=== PATIENT | female | born 1990 | race Caucasian/White ===

== ENCOUNTER → 2021-03-20 13:00 | Outpatient (CLI) | payer SELFPAY ==
[2021-03-09 10:58] VITALS: BMI 22.5
[2021-03-20 14:05] LABS: Thyroid Stim Hormone (TSH) 1.98 uIU/mL (0.358-3.74)
== END ==
PROVIDERS: Visit Provider Obstetrics & Gynecology
DX: N92.0 Excessive and frequent menstruation with regular cycle (principal); N97.9 Female infertility, unspecified
CPT/HCPCS: 36415; 84443

== ENCOUNTER → 2021-03-31 16:14 | Outpatient (CLI) | payer SELFPAY ==
[2021-03-09 10:58] VITALS: BMI 22.5
--- NOTE | 2021-03-31 16:16 | US_ITS ---
STUDY: ULTRASOUND OF THE FEMALE PELVIS - COMPLETE REASON FOR EXAM: Female, 30 years old. Menorrhagia LMP: 03/18/2021 TECHNIQUE: Transabdominal and Transvaginal TECHNICAL QUALITY: Adequate. COMPARISON: None. FINDINGS: The uterus is anteverted and is in a midline position. The uterus measures 8.0 x 3.1 x 4.2 cm. There is a Nabothian cyst of the cervix. The endometrium measures 7.0 mm in thickness, and is within normal limits. There is no demonstrated endometrial mass. Within the posterior uterine fundus there is an intramural 0.9 x 1.0 x 0.5 cm hypoechoic round focus consistent with an intramural fibroid. I.U.D. - The patient does not have an I.U.D. The right ovary is visualized. The right ovary measures 3.1 x 2 point to by 2.5 cm. There is a right ovarian cyst which measures 1.7 x 1.5 x 1.7 cm. There is normal arterial and normal venous vascularity. The left ovary is visualized. The left ovary measures 2.4 x 1.9 x 2.3 cm. There is a 1.8 x 1.8 x 1.0 cm left ovarian cyst. There is normal arterial and normal venous vascularity. There is no fluid in the cul-de-sac. Polycystic ovary disease: No. US/Pelvic (Non ) IMPRESSION: Bilateral ovarian cysts. 0.9 x 1.0 x 0.5 cm intramural fibroid. Electronically Signed: Chery Philip MD at 18:36 EDT Tel , Service support ,
--- NOTE | 2021-03-31 16:16 | US_ITS ---
STUDY: ULTRASOUND OF THE FEMALE PELVIS - COMPLETE REASON FOR EXAM: Female, 30 years old. Menorrhagia LMP: 03/18/2021 TECHNIQUE: Transabdominal and Transvaginal TECHNICAL QUALITY: Adequate. COMPARISON: None. FINDINGS: The uterus is anteverted and is in a midline position. The uterus measures 8.0 x 3.1 x 4.2 cm. There is a Nabothian cyst of the cervix. The endometrium measures 7.0 mm in thickness, and is within normal limits. There is no demonstrated endometrial mass. Within the posterior uterine fundus there is an intramural 0.9 x 1.0 x 0.5 cm hypoechoic round focus consistent with an intramural fibroid. I.U.D. - The patient does not have an I.U.D. The right ovary is visualized. The right ovary measures 3.1 x 2 point to by 2.5 cm. There is a right ovarian cyst which measures 1.7 x 1.5 x 1.7 cm. There is normal arterial and normal venous vascularity. The left ovary is visualized. The left ovary measures 2.4 x 1.9 x 2.3 cm. There is a 1.8 x 1.8 x 1.0 cm left ovarian cyst. There is normal arterial and normal venous vascularity. There is no fluid in the cul-de-sac. Polycystic ovary disease: No. US/Transvaginal Non- IMPRESSION: Bilateral ovarian cysts. 0.9 x 1.0 x 0.5 cm intramural fibroid. Electronically Signed: Chery Philip MD at 18:36 EDT Tel , Service support ,
== END ==
PROVIDERS: Referring Provider Obstetrics & Gynecology; Visit Provider Obstetrics & Gynecology
DX: N92.0 Excessive and frequent menstruation with regular cycle (principal)
CPT/HCPCS: 76830; 76856

== ENCOUNTER → 2022-06-05 | Outpatient (CLI) | payer SELFPAY ==
[2022-06-09 23:39] LABS: HPV APTIMA, High Risk Negative (Negative)
== END | disposition home or self-care (01) ==
LOC: LABSPEC 14:31
PROVIDERS: Visit Provider Nurse Practitioner Women's Health
DX: Z12.4 Encounter for screening for malignant neoplasm of cervix (principal)
CPT/HCPCS: 87624; 88175; G0145

== ENCOUNTER → 2024-08-31 | Outpatient (CLI) | payer SELFPAY ==
--- NOTE | 2024-08-31 07:59 | BI_ITS ---
MAMMOGRAPHY - BILATERAL SCREENING REASON FOR EXAM: Female, 34 years old. Routine annual screening examination. PERTINENT HISTORY: Aunt with breast cancer. TECHNIQUE: Digital bilateral breast fabiola (3D mammographic acquisition) in the CC and MLO projections. 2-D mediolateral oblique (MLO) and craniocaudad (CC) views of both breasts were obtained. CAD: Full Field Digital Mammography with Computer Added Detection was performed. COMPARISON: None. Baseline examination. FINDINGS: Breast Composition: The breasts are extremely dense, which lowers the sensitivity of mammography. There are no dominant masses or suspicious calcifications. No other significant abnormalities are identified. BI/SCRN MAMM (CAD)W/FABIOLA BILAT IMPRESSION: Negative screening mammogram. Yearly followup mammogram recommended. (A) ASSESSMENT CATEGORY: BIRADS Category 1: Negative. A letter regarding these results will be sent to the patient by the facility within 30 days. Approximately 10% of breast cancers are not detected by mammography. A normal mammogram should not delay biopsy of a clinically suspicious abnormality. [id number] Electronically Signed: Benjamin Ye MD at 9:25 EDT ,
== END | disposition home or self-care (01) ==
LOC: OPBI 07:55
PROVIDERS: Referring Provider Nurse Practitioner Women's Health; Visit Provider Nurse Practitioner Women's Health
DX: Z12.31 Encounter for screening mammogram for malignant neoplasm of breast (principal)
CPT/HCPCS: 77063; 77067

== ENCOUNTER → 2024-11-26 | Outpatient (CLI) | payer SELFPAY ==
[2024-11-26 12:23] LABS: Absolute Lymphocyte Count 2.05 X10^3/uL (0.83-4.51); Absolute Neutrophil Count 3.4 X10^3/uL (2.0-7.7); Basophil# 0.03 X10^3/uL; Basophil% 0.5 % (0-1); Eosinophil# 0.25 X10^3/uL; Hematocrit 36.9 % (37-47); Hemoglobin 11.5 g/dL (12.0-15.0); Lymphocyte # 2.05 X10^3/ul (0.83-4.51); Lymphocyte % 32.7 % (19-41); Mean Corp Hgb Conc 31.2 g/dL (32-36); Mean Corpuscular Hgb 25.1 pg (27.0-32.0); Mean Corpuscular Volume 80.6 fL (81-99); Mean Platelet Vol. 9.4 fl (6.2-12.0); Monocyte# 0.49 X10^3/uL; Monocyte% 7.8 % (0-10); NRBC Flagged by Analyzer 0 % (0-5); Neutrophil # 3.43 X10^3/uL (2.7-7.7); Neutrophil % 54.7 % (47-70); Platelet Count 569 K/mm3 (150-450); RBC Distribution Width CV 14.6 % (11.6-14.6); RBC Distribution Width SD 42.7 fl (35.1-43.9); Red Blood Count 4.58 M/mm3 (4.2-5.4); White Blood Count 6.3 K/mm3 (4.4-11.0)
[2024-11-26 12:43] LABS: ALB/GLOB Ratio 0.7 RATIO (0.9-2.4); AST(SGOT) 15 U/L (15-37); Alanine Aminotransfer ALT/SGPT 24 U/L (13-56); Albumin, Serum 3.1 g/dL (3.2-5.0); Alkaline Phosphatase 90 U/L (45-117); Anion Gap 6 (5-15); BUN 11 mg/dL (7-18); BUN/Creat Ratio 18.3 RATIO (10-20); Calcium,Total 8.9 mg/dL (8.5-10.1); Chloride 109 mmol/L (98-107); Cholesterol 240 mg/dL (200); EST Glomerular Filtration Rate 121 mL/min (>60); Est Glom Filt Rate - Afr Amer 146 mL/min (>60); Globulin 4.3 g/dL (2.2-4.2); Glucose 95 mg/dL (74-106); High Density Lipoprotein 59 mg/dL; Protein, Total 7.4 g/dL (6.4-8.2); Sodium Level 137 mmol/L (136-145); Triglycerides 239 mg/dL; Very Low Density Lipoprotein 48 mg/dL (5-40)
[2024-11-30 02:06] LABS: Beef <0.10 kU/L (Class 0); Chocolate <0.10 kU/L (Class 0); Codfish <0.10 kU/L (Class 0); Corn <0.10 kU/L (Class 0); Egg, Whole <0.10 kU/L (Class 0); Milk (Cow) <0.10 kU/L (Class 0); Mussels <0.10 kU/L (Class 0); Peanut <0.10 kU/L (Class 0); Pork <0.10 kU/L (Class 0); Salmon <0.10 kU/L (Class 0); Shrimp <0.10 kU/L (Class 0); Soybean <0.10 kU/L (Class 0); Tuna <0.10 kU/L (Class 0); Wheat <0.10 kU/L (Class 0)
== END | disposition home or self-care (01) ==
PROVIDERS: PCP Internal Medicine; Referring Provider Internal Medicine; Visit Provider Internal Medicine
DX: Z13.6 Encounter for screening for cardiovascular disorders (principal); R14.3 Flatulence; K60.2 Anal fissure, unspecified
CPT/HCPCS: 36415; 80053; 80061; 85025; 86003; 86005

== ENCOUNTER 2025-01-11 06:49 | Day surgery (SDC) | payer SELFPAY ==
[2025-01-11] VITALS (9 sets, daily range): BP systolic 92–130; BP diastolic 50–87; PULSE 65–88; RESP 12–16; TEMP 36.3–36.7; O2SAT 97–100; BMI 27.2
[2025-01-11 07:17] LABS: Internal QC Validated? YES +Cl - CLEAR BKGD; Pregnancy, Urine Negative Negative
--- NOTE | 2025-01-11 07:19 | H&P.OPEN ---
HPI - General General Date of Service: 01/11/25 HPI Narrative MILADYS BEAN, is a 34 F who presents for screening colonoscopy due to bright red blood per rectum and anal fissure. P patient did states she has slight amount of blood at the end of the prep. However that did resolve with the treatment of the fissure. Office visit 12/07/2024 HPI HPI: 34-year-old female presents due to bright red blood per rectum history and history of anal fissure. Patient states she noticed the fissure in fall 2022 went to an urgent care was told increased her fiber/water on sitz bath's and also could apply some Neosporin to it. Patient has been having bowel movements daily with her Metamucil powder and gummy. Patient states she will occasionally have some bright red blood per rectum. However in September 2024 she did have quite a bit of bright red blood per rectum which was concerning to her. Patient denies any immediate family history of colon cancer. Patient's paternal aunt had esophageal cancer and paternal first cousin?aunts daughter had her cecum removed but patient states there is no cancer. [facility], [facility] Medical History Wears glasses Alcohol use High cholesterol Syncope Heartburn Non-smoker History of edema Hemorrhoid Gastrointestinal complaints Back problem Arthritis Anal fissure Home Medications ?Medication ?Instructions ?Recorded ?Last Taken ?Type multivitamin 1 tab PO DAILY 06/05/22 01/10/25 History cetirizine 10 mg capsule (Zyrtec) 10 mg PO DAILY PRN allergy symptoms 06/19/23 01/10/25 History fluticasone propionate 50 1 spray intranasal DAILY 06/19/23 01/10/25 History mcg/actuation nasal spray,suspension (Flonase Allergy Relief) norgestimate 0.25 mg-ethinyl See Rx Instructions .Route 06/22/24 01/10/25 Rx estradiol 35 mcg tablet (Gisel) .COMPLEX #84 tabs psyllium husk 0.4 gram capsule 0.4 g PO DAILY 11/12/24 01/09/25 History (Metamucil) Diltiazem 10mg/Lidocaine 50mg 1 supp OH BID PRN pain 01/07/25 Unknown History Suppository 30 supp suppository Allergy/AdvReac Type Severity Reaction Status Date / Time nickel Allergy Intermediate Rash Verified 01/11/25 07:14 amoxicillin Allergy Mild hives Verified 01/11/25 07:14 Family History Aunt Breast cancer Esophageal cancer Grandfather Diabetes Grandmother Arthritis RA Grandfather Heart disease Mother Anxiety Sister Allergy to gluten Surgical History History of wisdom tooth extraction, class II edentulism Social History adopted: No household members: spouse number of children: 0 current occupational status: employed 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 current occupational exposures/hazards: No pets and animals: Yes leisure activities: games, reading and other history of recent travel: No sexually active: Yes Smoking Status: Never smoker second hand exposure: No alcohol intake: current alcohol intake frequency: holidays/special occasions only Alcohol type: wine details: social substance use type: does not use diet: low salt well-balanced diet: daily or most days caffeine: Yes Type: coffee eating out: 1-3 times/week during the past year weight has: increased > 10 lbs what type of physical activity do you participate in: bicycling frequency: 3-4 times per week duration: 15-30 minutes/day corbin/jewish: mandaen seatbelt use: always do you feel safe at home: Yes additional social history: [place] 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[employer] Past Medical/Surgical History Planned Operation Planned Operative Procedure(s): COLONOSCOPY Previous Hospitalizations/Surgeries HX Hospitalizations: No Any Problems With Anesthesia: No (FAMILY HISTORY PONV) You/Your Family Experience Fever (Hyperthermia) With Anes: No Cholinesterase deficiency: No Cardiovascular Hx Hypertension: No Respiratory Hx Sleep Apnea: No Hx Respiratory Tract Infection/Cold (presently): No Do You Snore Loudly (louder than talking or can be heard): No Do You Often Feel Tired/ Fatigued/ Sleepy Dring Daytime?: No Has Anyone Observed You Stop Breathing During Sleep?: No Result (for STOP score): Negative Smoking Status: Never smoker Neurological Does patient have nerve stimulator: No Reproduction : No Miscellaneous Recent Exposure to Contagious Disease: No Allergies nickel Allergy (Intermediate, Verified 01/11/25 07:14) Rash amoxicillin Allergy (Mild, Verified 01/11/25 07:14) hives Discharge Is Pt Admitted From a Group Home, or a Residential: No Who Could Help: After D/C, Where Do you Plan to Go: Return Home Vital Signs Vital Signs Vital Signs: 01/11/25 07:15 01/11/25 07:15 Temperature 97.7 F L Temperature Source Temporal Pulse Rate 88 Respiratory Rate 12 Respiratory Pattern Normal Blood Pressure 130/80 H Blood Pressure Mean 96 Blood Pressure Source Monitor Blood Pressure Position Semi-Fowlers Blood Pressure Location Right Arm Pulse Ox 99 Oxygen Delivery Method Room Air Weight Weight: 179 lb 0.246 oz Body Mass Index (BMI) 27.2 Physical Exam Const alert, oriented x3 and no apparent distress HEENT normocephalic and head/scalp atraumatic Resp normal respiratory effort Cardio regular rate GI soft to palpation and non-tender; Negative for non-distended Palpation: Negative for guarding Extremity no clubbing, cyanosis or edema Skin no rashes or lesions noted Neuro CN's II-XII intact bilaterally Psych mental status grossly normal Assessment & Plan Assessment/Plan (1) BRBPR (bright red blood per rectum): Surgery Risks - Colonoscopy I discussed with the patient the risks of the procedure: Yes Risks Include but are not Limited To: Risks include but are not limited to: Bleeding, perforation requiring further surgery, inability to complete colonoscopy requiring barium enema.
--- NOTE | 2025-01-11 07:21 | PRE.ANES_ITS ---
ASA Classification* ASA Classification ASA Classification: 2 Assessment & Plan Anesthesia* Anesthesia Assessment Anesthesia Assessment: Discussed sedation and/or anesthesia options, risks, benefits, and alternatives with patient/parents/legal guardian/POA. Questions invited. The patient/parents/legal guardian/POA seems to understand and agrees to proceed with anesthesia plan. Reviewed the physical assessment, medical history, allergy history and patient home medications list prior to surgery/procedure/anesthetic and documented any changes. Performed airway and anesthesia risk assessments. Anesthesia Type Anesthesia Type: MAC Anesthesia Focused Assessment* Temperature: 97.7 F Pulse Rate: 88 Blood Pressure: 130/80 Respiratory Rate: 12 Pulse Ox: 99 Airway Assessment Mouth opens: >3 cm Mallampati Score: II Focused Labs Anesthesia Preop lab: CBC WBC 6.3 K/mm3 (4.4-11.0) 11/26/24 09:06 11/26/24 RBC 4.58 M/mm3 (4.2-5.4) 11/26/24 09:06 11/26/24 Hgb 11.5 g/dL (12.0-15.0) L 11/26/24 09:06 5 Hct 36.9 % (37-47) L 11/26/24 09:06 11/26/24 Plt Count 569 K/mm3 (150-450) H 11/26/24 09:06 11/26/24 CHEMISTRY Potassium 4.0 mmol/L (3.5-5.1) 11/26/24 09:06 11/26/24 Sodium 137 mmol/L (136-145) 11/26/24 09:06 11/26/24 BUN 11 mg/dL (7-18) 11/26/24 09:06 11/26/24 Creatinine 0.60 mg/dL (0.55-1.02) 11/26/24 09:06 11/26/24 Glucose 95 mg/dL (74-106) 11/26/24 09:06 11/26/24 TSH 1.98 uIU/mL (0.358-3.74) 03/20/21 13:15 COAG Urine Test Negative Negative 01/11/25 07:00 01/11/25 Pre-Assessment Diagnosis/Proposed Procedure Planned Operative Procedure(s): COLONOSCOPY Anesthesia History Anesthesia History - information systems audit manager: Anesthesia History - information systems audit manager Hx Hospitalization No 01/11/25 07:20 Any Problems With Anesthesia No: FAMILY HISTORY PONV 01/11/25 07:20 Cholinesterase deficiency No 01/11/25 07:20 You/Your Family Experience No 01/11/25 07:20 fever (hyperthermia) with Relationship Recent Exposure to Contagious No 01/11/25 07:20 Disease Does patient have nerve No 01/11/25 07:20 stimulator Patient instructed to have device shut off --Does patient have Pacemaker No 01/11/25 07:15 or ICD? When Was Last Pacemaker Check QUESTION #4 FULL TEXT: You/Your Family Experience fever (hyperthermia) with Anesthesia Last Oral Intake Last Oral intake: Last Oral Intake NPO since 23:45 01/11/25 07:15 Meds taken in AM with sips of No 01/11/25 07:15 water? Meds patient instructed to take am of surgery PONV PONV - information systems audit manager: PONV - information systems audit manager Female Yes 01/07/25 16:26 HX of Motion Sickness No 01/07/25 16:26 HX of N/V After Surgery No 01/07/25 16:26 Non-Smoker Yes 01/07/25 16:26 Duration of Surgery greater No 01/07/25 16:26 than 60 minutes Number of Risk Factors 2 01/07/25 16:26 PONV Score Moderate Risk 01/07/25 16:26 Height & Weight Height & Weight: Anesthesia: Height & Weight Height 5 ft 8 in 01/11/25 07:15 Weight: 81.2 kg 01/11/25 07:15 Body Mass Index (BMI) 27.2 01/11/25 07:15 Respiratory Assessment Respiratory Assessment - information systems audit manager: Respiratory Tract Infection Hx - information systems audit manager Hx Respiratory Tract Infection No 01/11/25 07:20 STOP Sleep Apnea STOP Sleep Apnea - information systems audit manager: STOP Sleep Apnea - information systems audit manager Hx Hypertension No 01/11/25 07:20 Hx Sleep Apnea No 01/11/25 07:20 CPAP BIPAP Do you snore loudly (louder No 01/11/25 07:20 than talking or can be heard Do you often feel tired/ No 01/11/25 07:20 fatigued/ sleepy during daytime? Has anyone observed you stop No 01/11/25 07:20 breathing during sleep? STOP Results Negative 01/11/25 07:20 QUESTION #5 FULL TEXT : Do you snore loudly (louder than talking or can be heard through closed doors)? Tobacco Use History Tobacco Use History - information systems audit manager: Tobacco Use History - information systems audit manager Tobacco Use Smoking Status Never smoker 01/11/25 07:20 Hx Tobacco Use No 01/07/25 16:26 Years Smoking Packs Smoked per Day Smoking Cessation Date was within the last 15 years Hx Smoking Cessation Date Hx Smoking Cessation Counseling Hematologic Medial History Hematologic Hx - information systems audit manager: Hematologic Medical Hx - drafter seismograph Hx of Blood Transfusion No 01/07/25 16:26 Hx of Transfusion in last 3 No 01/07/25 16:26 Months Date of Last Transfusion (if within last 3 months) Ever experience any problems No 01/07/25 16:26 with transfusion(s)? Specify any problems Hx of Preganancy in last 3 No 01/07/25 16:26 Months Nurse Filling Out Transfusion MGRIFFITH 01/07/25 16:26 & Questions: Date: 01/07/25 01/07/25 16:26 Time: 16:28 01/07/25 16:26 Patient unable to answer at this time (ie. confused, unrespo /Reproduction History /Reproductive History - information systems audit manager: /Reproductive Hx- information systems audit manager Hx Now No 01/11/25 07:20 Gestational Age (in weeks): EDC: Hx Hx Para Hx Section SAB No 01/07/25 16:26 [facility] Medical History Wears glasses Alcohol use High cholesterol Syncope Heartburn Non-smoker History of edema Hemorrhoid Gastrointestinal complaints Back problem Arthritis Anal fissure Home Medications ?Medication ?Instructions ?Recorded ?Last Taken ?Type multivitamin 1 tab PO DAILY 06/05/2212/26 History cetirizine 10 mg capsule (Zyrtec) 10 mg PO DAILY PRN a llergy symptoms 06/19/23 01/10/25 History fluticasone propionate 50 1 spray intranasal DAILY 01/10/25 History mcg/actuation nasal spray,suspension (Flonase Allergy Relief) norgestimate 0.25 mg-ethinyl See Rx Instructions .Rout e 06/22/24 01/10/25 Rx estradiol 35 mcg tablet (Gisel) .COMPLEX #84 tabs psyllium husk 0.4 gram capsule 0.4 g PO DAILY 11/12/24 01/09/25 History (Metamucil) Diltiazem 10mg/Lidocaine 50mg 1 supp ID BID PRN pain 0 01/07/25 Unknown History Suppository 30 supp suppository Allergy/AdvReac Type Severity Reaction Status Date / Time nickel Allergy Intermediate Rash Verified 01/11/25 07:14 amoxicillin Allergy Mild hives Verified 01/11/25 07:14 Family History Aunt Breast cancer Esophageal cancer Grandfather Diabetes Grandmother Arthritis RA Grandfather Heart disease Mother Anxiety Sister Allergy to gluten Surgical History History of wisdom tooth extraction, class II edentulism Social History adopted: No household members: spouse number of children: 0 current occupational status: employed 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 current occupational exposures/hazards: No pets and animals: Yes leisure activities: games, reading and other history of recent travel: No sexually active: Yes Smoking Status: Never smoker second hand exposure: No alcohol intake: current alcohol intake frequency: holidays/special occasions only Alcohol type: wine details: social substance use type: does not use diet: low salt well-balanced diet: daily or most days caffeine: Yes Type: coffee eating out: 1-3 times/week during the past year weight has: increased > 10 lbs what type of physical activity do you participate in: bicycling frequency: 3-4 times per week duration: 15-30 minutes/day corbin/anglican: quaker seatbelt use: always do you feel safe at home: Yes 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
--- NOTE | 2025-01-11 08:35 | OP.COLON_ITS ---
Patient Name: Marti Paul Procedure Date: 01/11/2025 8:05 AM Date of : 1990 Age: 34 Procedure: Colonoscopy Indications: Rectal bleeding Providers: Madyson Rdz MD Referring MD: Inga Hong Md Medicines: Monitored Anesthesia Care Patient Profile: This is a 34 year old female. Last Colonoscopy: none. The patient's first colonoscopy is today. Complications: No immediate complications. Procedure: Pre-Anesthesia Assessment: - Prior to the procedure, a History and Physical was performed, and patient medications and allergies were reviewed. The patient's tolerance of previous anesthesia was also reviewed. The risks and benefits of the procedure and the sedation options and risks were discussed with the patient. All questions were answered, and informed consent was obtained. Prior Anticoagulants: The patient has taken no anticoagulant or antiplatelet agents. ASA Grade Assessment: Per anesthesia. After reviewing the risks and benefits, the patient was deemed in satisfactory condition to undergo the procedure. After I obtained informed consent, the scope was passed under direct vision. Throughout the procedure, the patient's blood pressure, pulse, and oxygen saturations were monitored continuously. The Colonoscope was introduced through the anus and advanced to the cecum, identified by the appendiceal orifice, ileocecal valve and palpation. The colonoscopy was performed without difficulty. The patient tolerated the procedure well. Scope In: 8:16:52 AM Scope Withdrawal Time 0 hours 6 minutes 53 seconds Scope Out: 8:29:52 AM Total Procedure Duration Time 0 hours 13 minutes 0 seconds Findings: An anal fissure was found on perianal exam. The entire examined colon appeared normal on direct and retroflexion views. Impression: - Anal fissure found on perianal exam. - The entire examined colon is normal on direct and retroflexion views. - No specimens collected. Recommendation: - Discharge patient to home. - Resume previous diet. - Continue present medications. - Repeat colonoscopy in 10 years for screening purposes. Procedure Code(s): --- Professional --- 78947, Colonoscopy, flexible; diagnostic, including collection of specimen(s) by brushing or washing, when performed (separate procedure) Diagnosis Code(s): --- Professional --- K60.2, Anal fissure, unspecified K62.5, Hemorrhage of anus and rectum CPT copyright 2021 [employer]. All rights reserved. The codes documented in this report are preliminary and upon master automotive technician review may be revised to meet current compliance requirements. MD Madyson Pineda MD 01/11/2025 8:35:03 AM This report has been signed electronically. Number of Addenda: 0 Note Initiated On: 01/11/2025 8:05 AM
--- NOTE | 2025-01-11 08:35 | OP.CCLET_ITS ---
01/11/2025 Inga Hong Md Re : Colonoscopy procedure for Marti Paul Dear Gely This procedure was performed on Saturday, January 11, 2025. My impressions and recommendations are as follows: Impressions : - Anal fissure found on perianal exam. - The entire examined colon is normal on direct and retroflexion views. - No specimens collected. Recommendations : - Discharge patient to home. - Resume previous diet. - Continue present medications. - Repeat colonoscopy in 10 years for screening purposes. My findings are described in the full procedure note, which is enclosed. If I can be of further assistance, please feel free to contact me at Doctor phone number(s): , Work: . Sincerely, MD Madyson Pineda MD 01/11/2025 8:35:03 AM This report has been signed electronically.
--- NOTE | 2025-01-11 08:40 | PCM.POST.ANE ---
Anesthesia: Postop Eval I Current Vital Signs Temperature: 98 F Pulse Rate: 84 Blood Pressure: 94/50 Respiratory Rate: 16 Pulse Ox: 97 Oxygen Delivery Method: Room Air Assessment Airway patent: No Spontaneous unlabored respirations: No Mental status: Awake and Calm nausea: No Vomiting: No Anesthesia Complication: No Fluid Hydration Crystalloid volume administer (ml): 50 Total IV fluid infused: 50 Progress Note Anesthesia document: Postop Eval 1 completed: Yes
--- NOTE | 2025-01-11 08:59 | PCM.POSTANE2 ---
Anesthesia Postop Eval I Sum Postop Eval Completion status Anesthesia document: Postop Eval 1 completed: Yes Anesthesia Postop Eval I Summary Anesthesia Postop Eval I Summary: Anesthesia Postop Eval I: Assessment Summary Airway patent No 01/11/25 08:41 [email or web address] Spontaneous unlabored No 01/11/25 08:41 [email or web address] respirations Mental status Awake,Calm 01/11/25 08:41 [email or web address] nausea No 01/11/25 08:41 [email or web address] Vomiting No 01/11/25 08:41 [email or web address] Anesthesia Postop Eval I: Fluid Summary Crystalloid volume administer 50 01/11/25 08:41 [email or web address] (ml) Colloids volume administered ( ml) Blood Product volume administered (ml) Total IV fluid infused 50 01/11/25 08:41 [email or web address] Anesthesia Postop Eval I: Summary Notes Anesthesia Complication No 01/11/25 08:41 [email or web address] Anesthesia Complication Comment: Post-operative progress note Anesthesia: Postop Eval II Evaluation Mental status: Awake Pain Level: 0 nausea: No Vomiting: No
== END 2025-01-11 09:25 | disposition home or self-care (01) ==
LOC: EN 06:50 → AC 06:51
PROVIDERS: Anesthesiology; PCP Internal Medicine; Referring Provider Internal Medicine; Visit Provider Surgery
PROC: 0DJD8ZZ Inspection of Lower Intestinal Tract, Via Natural or Artificial Opening Endoscopic (ICD-10-PCS; CPT 45378; principal; 2025-01-11 08:10)
DX: Z12.11 Encounter for screening for malignant neoplasm of colon (principal); K62.5 Hemorrhage of anus and rectum; E78.00 Pure hypercholesterolemia, unspecified; K60.2 Anal fissure, unspecified
CPT/HCPCS: 45378; 81025; A4216; J2405

== ENCOUNTER → 2025-07-24 | Outpatient (CLI) | payer SELFPAY ==
--- OUTSIDE RECORDS SUMMARY | 2025-07-24 09:52 | XMS RPT_ITS | CCD ---
Author Organization [facility] Care Team Providers Care Implementation Lead Name Role Phone BARRY CHICAS Attending Unavailable BARRY CHICAS Admitting Unavailable AA NO PCP, NO PCP Primary Care Unavailable Care Physician, No Primary Primary Care Provider Unavailable Care Physician, No Primary Referring Provider Un available Tal SHAKE MAKER, SHAKE MAKER-C Gabriella Attending Provider Required, No Pcp Unavailable Unavailable Markie Kaur Unavailable Kendell Madyson Consulting Unavailable Jerman Rdzera Attending Unavailable Melbeta, Inga Primary Care Unavailable Melbeta, Inga Referring Unavailable Tal SHAKE MAKER, Gabriella Attending Unavailable Care Physician, No Primary Primary Care Unava ilable Care Physician, No Primary Referring Unava ilable Gely, Inga Primary Care Unavailable Melbeta, Inga Attending Unavailable Melbeta, Inga Referring Unavailable Tal SHAKE MAKER, Gabriella Attending Unavailable Tal SHAKE MAKER, Gabriella Referring Unavailable Care Physician, No Primary Primary Care Unava ilable Robotham, Madyson Attending Unavailable Melbeta, Inga Primary Care Unavailable Gely, Inga Referring Unavailable Robotham, Madyson Attending Unavailable Care Physician, No Primary Referring Unava ilable Melbeta, Inga Primary Care Unavailable Care Physician, No Primary Primary Care Unava ilable Care Physician, No Primary Referring Unava ilable Melbeta, Inga Attending Unavailable Allergies Allergy Classification Reported Allergen(s) Allergy Type Date of Onset Reaction(s) Facility nickel (1 source) nickel; Translations: [Nickel] Drug Allergy [facility] Repository Penicillins (antibiotic) (1 source) Amoxicillin Drug Allergy [facility] Repository (2 sources) Amoxicillin Drug Allergy 06-05-2022 [facility] Work Phone: (1 source) Amoxicillin Drug Allergy 01-11-2025 [facility] Repository (1 source) nickel Drug Allergy 01-11-2025 [facility] Repository Medications Current Medications Medication Drug Class(es) Dates Sig (Normalized) Sig (Original) Norgestimate-Ethin yl Estradiol (2 sources) Progestin, Estrogen Start: 06-05-2022 take 1 tablet by mouth once daily Norgestimate-Ethi nyl Estradiol (Sprintec (28)) 0.25-35 mg-mcg tablet Active 1 TABLET PO daily 84 June 05, 2022 12:00am Sprintec Quantit y: 0 Refills: 0 Ordered: 20-Jul-2023 Rashad Arreola Generic Substitution Allowed Multivitamin preparation (1 source) Start: 06-05-2022 take 1 tablet by mouth once daily Multivitamin Active 1 TABLET PO DAILY June 05, 2022 12:00am Problems Active Problems Problem Classification Problem Date Documented Da te Episodic/Chronic Anal and rectal conditions (5 sources) Rectal pain; Translations: [Anal fissure] Onset: 11-12-2024 07-20-2023 Episodic Comment on above: RECTAL PAIN Contraceptive and procreative management (2 sources) Encounter for fertility testing; Translations: [ENCOUNTER FOR FERTILITY TESTING] Onset: 05-19-2021 Episodic Gastrointestinal hemorrhage (2 sources) Hemorrhage of anus and rectum; Translations: [Hemorrhage of anus and rectum] Onset: 01-22-2025 Episodic Menstrual disorders (2 sources) Dysmenorrhea; Translations: [Dysmenorrhea, unspecified] Chronic Other gastrointestinal disorders (1 source) Flatulence; Translations: [Flatulence] Onset: 11-12-2024 Episodic Other screening for suspected conditions (not mental disorders or infectious disease) (3 sources) Encounter for screening for cardiovascular disorders; Translations: [Encounter for screening mammogram for malignant neoplasm of breast] Onset: 06-22-2024 Episodic Unclassified (2 sources) Infertile; Translations: [Infertility] Past or Other Problems Problem Classification Problem Date Documented Da te Episodic/Chronic Residual codes; unclassified (1 source) Family history of malignant neoplasm of breast; Translations: [Family history of malignant neoplasm of breast] Onset: 06-22-2024 Episodic Results Test Name Value Interpretation Reference Range Facility Colonoscopy Reporton 025 Colonoscopy Report [facility] Medical Records Department [address] [place] [address] Colonoscopy Report MR#: [id number] Acct: [id number] Name: MILADYS DIETZ Rep #: [id number] : 1990 34 From: Madyson Rdz MD PCP: Dr. Inga Hong MD Status:REG [facility] Patient Name: Miladys Bean Procedure Date: 01/11/2025 8:05 AM Date of : 1990 Age: 34 Procedure: Colonoscopy Indications: Rectal bleeding Providers: Madyson Rdz MD Referring MD: Inga Hong Md Medicines: Monitored Anesthesia Care Patient Profile: This is a 34 year old female. Last Colonoscopy: none. The patient's first colonoscopy is today. Complications: No immediate complications. Procedure: Pre-Anesthesia Assessment: - Prior to the procedure, a History and Physical was performed, and patient medications and allergies were reviewed. The patient's tolerance of previous anesthesia was also reviewed. The risks and benefits of the procedure and the sedation options and risks were discussed with the patient. All questions were answered, and informed consent was obtained. Prior Anticoagulants: The patient has taken no anticoagulant or antiplatelet agents. ASA Grade Assessment: Per anesthesia. After reviewing the risks and benefits, the patient was deemed in satisfactory condition to undergo the procedure. After I obtained informed consent, the scope was passed under direct vision. Throughout the procedure, the patient's blood pressure, pulse, and oxygen saturations were monitored continuously. The Colonoscope was introduced through the anus and advanced to the cecum, identified by the appendiceal orifice, ileocecal valve and palpation. The colonoscopy was performed without difficulty. The patient tolerated the procedure well. Scope In: 8:16:52 AM Scope Withdrawal Time 0 hours 6 minutes 53 seconds Scope Out: 8:29:52 AM Total Procedure Duration Time 0 hours 13 minutes 0 seconds Findings: An anal fissure was found on perianal exam. The entire examined colon appeared normal on direct and retroflexion views. Impression: - Anal fissure found on perianal exam. - The entire examined colon is normal on direct and retroflexion views. - No specimens collected. Recommendation: - Discharge patient to home. - Resume previous diet. - Continue present medications. - Repeat colonoscopy in 10 years for screening purposes. Procedure Code(s): --- Professional --- 18592, Colonoscopy, flexible; diagnostic, including collection of specimen(s) by brushing or washing, when performed (separate procedure) Diagnosis Code(s): --- Professional --- K60.2, Anal fissure, unspecified K62.5, Hemorrhage of anus and rectum CPT copyright 2021 [employer]. All rights reserved. The codes documented in this report are preliminary and upon cake tester review may be revised to meet current compliance requirements. MD Madyson Pineda MD 01/11/2025 8:35:03 AM This report has been signed electronically. Number of Addenda: 0 Note Initiated On: 01/11/2025 8:05 AM 01/11/25834 Date Madyson Rdz MD Cosigner Signature: Date (if indicated) CC: Dr. Inga Hong MD; Dr. Madyson Rdz MD Date Dictated: 01/11/25804 Date Transcribed: Sponge Press Operator: TR Signed [facility] MR/POSTOP.VENUS 01-11-2025 MR/POSTOP.[facility] Medical Records Department [address] [place] [address] Anesthesia Postop Eval I 01/11/25 0840 MR#: [id number] Acct: [id number] Name: MILADYS DIETZ Rep #: [id number] : 1990 34 From: Francisco Javier Garcia PCP: Dr. Inga Hong MD Status:REG SD Y Race: C Location: [place] [address] Anesthesia: Postop Eval I Current Vital Signs Temperature: 98 F Pulse Rate: 84 Blood Pressure: 94/50 Respiratory Rate: 16 Pulse Ox: 97 Oxygen Delivery Method: Room Air Assessment Airway patent: No Spontaneous unlabored respirations: No Mental status: Awake and Calm nausea: No Vomiting: No Anesthesia Complication: No Fluid Hydration Crystalloid volume administer (ml): 50 Total IV fluid infused: 50 Progress Note Anesthesia document: Postop Eval 1 completed: Yes 01/11/25 0841 Date Francisco Javier Demarcodarlenepatty Signature: Date CC: Signed Normal [facility] [id number] 01-11-2025 MR/POSTOPAN2 [facility] Medical Records Department [address] [place] [address] Anesthesia Postop Eval II 01/11/25 0859 MR#: [id number] Acct: [id number] Name: MILADYS DIETZ Rep #: [id number] : 1990 34 From: Jesu Ross MD PCP: Dr. Inga Hong MD Status:REG [facility] Y Race: C Location: [place] [address] Anesthesia Postop Eval I Sum Postop Eval Completion status Anesthesia document: Postop Eval 1 completed: Yes Anesthesia Postop Eval I Summary Anesthesia Postop Eval I Summary: Anesthesia Postop Eval I: Assessment Summary Airway patent No 01/11/25 08:41 [email or web address] Spontaneous unlabored No 01/11/25 08:41 [email or web address] respirations Mental status Awake,Calm 01/11/25 08:41 [email or web address] nausea No 01/11/25 08:41 [email or web address] Vomiting No 01/11/25 08:41 [email or web address] Anesthesia Postop Eval I: Fluid Summary Crystalloid volume administer 50 01/11/25 08:41 [email or web address] (ml) Colloids volume administered ( ml) Blood Product volume administered (ml) Total IV fluid infused 50 01/11/25 08:41 [email or web address] Anesthesia Postop Eval I: Summary Notes Anesthesia Complication No 01/11/25 08:41 [email or web address] Anesthesia Complication Comment: Post-operative progress note Anesthesia: Postop Eval II Evaluation Mental status: Awake Pain Level: 0 nausea: No Vomiting: No 01/11/25 0859 Date Jesu Polanco Signature: Date CC: Signed Normal [facility] ,Urineon 01-11-2025 Beta HCG ( test) Ql (U) Negative Normal [facility] Comment on above: Result Comment: Very dilute urine specimens, as indicated by a low specific gravity, may not contain client services representative levels of hCG. If is still suspected, a first morning urine specimen should be collected 48 hours later and tested. Performed By: #### L 400.7600 #### [facility] [address] [place], [address] Surgery Visit Reporton 12-07 Surgery Visit Report [facility] [address] [place] [address] OFFICE VISIT Date of Service: 12/07/24 MR#: [id number] Acct: [id number] Name: MILADYS DIETZ Rep #: [id number] : 1990 Provider: Dr. Madyson rothman MD Age/Sex: 34/F Location: [facility] Status: Signed Intake Vital Signs 11/12/24 10:30 12/07/24 13:16 Height 5 ft 8 in 5 ft 8 in Weight: 178 lb 178 lb 4 oz BMI 27.0 27.1 BP 124/62 H 119/80 Blood Pressure Location Lt brachial Rt brachial Position Sitting Sitting Respiration 16 18 Pulse 84 87 Pulse Source Monitor Monitor Temp 97.6 F L 97.2 F L Temp Source Temporal Temporal Pulse Oximetry (%) 97 98 Oxygen Delivery Method room air room air Intake Visit Reasons: BLOOD IN STOOL, ANAL FISSURE Chief Complaint: blood in stool, anal fissure Is patient in pain?: No Allergies amoxicillin Allergy (Mild, Verified 12/07/24 13:17) hives Medications ???Medication ???Instructions ???Recorded ???Confirmed ???Type multivitamin 1 tab PO DAILY 06/05/22 12/07/24 History cetirizine 10 mg capsule (Zyrtec) 10 mg PO DAILY PRN 06/19/23 12/07/24 History fluticasone propionate 50 1 spray intranasal DAILY 06/19/23 12/07/24 History mcg/actuation nasal spray,suspension (Flonase Allergy Relief) norgestimate 0.25 mg-ethinyl See Rx Instructions .Route 06/22/24 12/07/24 Rx estradiol 35 mcg tablet (Gisel) .COMPLEX #84 tabs psyllium husk 0.4 gram capsule 0.4 g PO ONCE 11/12/24 12/07/24 History (Metamucil) Diltiazem 10mg/Lidocaine 50mg 1 supp OK BID 2 weeks #30 supp 12/07/24 12/07/24 Rx Suppository 30 supp suppository [facility] Medical History (Updated 12/09/24 @ 11:[address] 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 current occupational exposures/hazards: No pets and animals: Yes leisure activities: games, reading and other history of recent travel: No sexually active: Yes Smoking Status: Never smoker second hand exposure: No alcohol intake: current alcohol intake frequency: holidays/special occasions only Alcohol type: wine details: social substance use type: does not use diet: low salt well-balanced diet: daily or most days caffeine: Yes Type: coffee eating out: 1-3 times/week during the past year weight has: increased > 10 lbs what type of physical activity do you participate in: bicycling frequency: 3-4 times per week duration: 15-30 minutes/day corbin/buddhist: oriental orthodox seatbelt use: always do you feel safe at home: Yes 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 Patient states she noticed the fissure in fall 2022 went to an urgent care was told increased her fiber/water on sitz bath's and also could apply some Neosporin to it. Patient has been having bowel movements daily with her Metamucil powder and gummy. Patient states she will occasionally have some bright red blood per rectum. However in September 2024 she did have quite a bit of bright red blood per rectum which was concerning to her. Patient denies any immediate family history of colon cancer. Patient's paternal aunt had esophageal cancer and paternal first cousin???aunts daughter had her cecum removed but patient states there is no cancer. ROS General General: Yes fatigue; No weight change, appetite, colon cancer, breast cancer or weakness HEENT HEENT: No difficulty swallowing, eye injury, eye surgery, swollen glands or hoarseness Endo Endocrine: No thyroid disease, diabetes mellitus, thyroid cancer, Hair loss, heat intolerance or cold intolerance Skin Skin: No rash or changing moles Musc Musculoskeletal: Yes arthritis; No back problems, rheumatoid arthritis, gout or joint pain Cardio Cardiovascular: No murmur, pacemaker, heart disease, atrial fibrillation, high blood pressure, heart attack, heart stent, palpitations, shortness of breat with exertion or chest pain Psych Psychiatric: No depression, anxiety or hearing voices Resp Respiratory: No shortness of (more content not included)... Normal [facility] L5500.0550on 11-30-2024 BEEF <0.10 Normal Class 0 [facility] Comment on above: Performed By: #### L 5500.0550, L500.4050, L100.0100, L500.4100 #### [facility] [address] [place], [address] CHOCOLATE <0.10 Normal Class 0 [facility] Comment on above: Performed By: #### L 5500.0550, L500.4050, L100.0100, L500.4100 #### [facility] [address] [place], [address] CODFISH <0.10 Normal Class 0 [facility] Comment on above: Performed By: #### L 5500.0550, L500.4050, L100.0100, L500.4100 #### [facility] [address] [place], [address] COMMENT Comment Normal . [facility] Comment on above: Result Comment: She [place] of Specific IgE Class Description of Class ----- < 0.10 0 Negative 0.10 - 0.31 0/I Equivocal/Low 0.32 - 0.55 I Low 0.56 - 1.40 II Moderate 1.41 - 3.90 III High 3.91 - 19.00 IV Very High 19.01 - 100.00 V Very High >100.00 Very High Performed By: #### L 5500.0550, L500.4050, L100.0100, L500.4100 #### [facility] [address] [place], [address] CORN <0.10 Normal Class 0 [facility] Comment on above: Performed By: #### L 5500.0550, L500.4050, L100.0100, L500.4100 #### [facility] [address] [place], [address] EGG, WHOLE <0.10 Normal Class 0 [facility] Comment on above: Result Comment: Perf ormed at: [facility] [address] [id number] Specialized Developer: Kymberly Holder MD, Phone: [phone] Performed By: #### L 5500.0550, L500.4050, L100.0100, L500.4100 #### [facility] [address] [place], [address] MILK (COW) <0.10 Normal Class 0 [facility] Comment on above: Performed By: #### L 5500.0550, L500.4050, L100.0100, L500.4100 #### [facility] [address] [place], [address] MUSSELS <0.10 Normal Class 0 [facility] Comment on above: Performed By: #### L 5500.0550, L500.4050, L100.0100, L500.4100 #### [facility] [address] [place], [address] PEANUT <0.10 Normal Class 0 [facility] Comment on above: Performed By: #### L 5500.0550, L500.4050, L100.0100, L500.4100 #### [facility] [address] [place], [address] PORK <0.10 Normal Class 0 [facility] Comment on above: Performed By: #### L 5500.0550, L500.4050, L100.0100, L500.4100 #### [facility] [address] [place], [address] SALMON <0.10 Normal Class 0 [facility] Comment on above: Performed By: #### L 5500.0550, L500.4050, L100.0100, L500.4100 #### [facility] [address] [place], [address] SHRIMP <0.10 Normal Class 0 [facility] Comment on above: Performed By: #### L 5500.0550, L500.4050, L100.0100, L500.4100 #### [facility] [address] [place], [address] SOYBEAN <0.10 Normal Class 0 [facility] Comment on above: Performed By: #### L 5500.0550, L500.4050, L100.0100, L500.4100 #### [facility] [address] [place], [address] TUNA <0.10 Normal Class 0 [facility] Comment on above: Performed By: #### L 5500.0550, L500.4050, L100.0100, L500.4100 #### [facility] [address] [place], [address] WHEAT <0.10 Normal Class 0 [facility] Comment on above: Performed By: #### L 5500.0550, L500.4050, L100.0100, L500.4100 #### [facility] [address] [place], [address] CBC W/Diff, Automatedon 01-0 2-2024 Absolute Lymph 2.05 X10 3/uL Normal 0.83-4.51 [facility] Comment on above: Performed By: #### L 5500.0550, L500.4050, L100.0100, L500.4100 #### [facility] [address] [place], [address] Absolute Neut 3.4 X10 3/uL Normal 2.0-7.7 [facility] Comment on above: Performed By: #### L 5500.0550, L500.4050, L100.0100, L500.4100 #### [facility] [address] [place], [address] Basophils/100 WBC (Bld) 0.5 % Normal 0-1 [facility] Comment on above: Performed By: #### L 5500.0550, L500.4050, L100.0100, L500.4100 #### [facility] [address] [place], [address] Eosinophils/100 WBC (Bld) 4.0 % Normal 0-5 [facility] Comment on above: Performed By: #### L 5500.0550, L500.4050, L100.0100, L500.4100 #### [facility] [address] [place], [address] Erythrocyte distribution width (RBC) [Ratio] 14.6 % Normal 11.6-14.6 [facility] Comment on above: Performed By: #### L 5500.0550, L500.4050, L100.0100, L500.4100 #### [facility] [address] [place], [address] Hematocrit (Bld) [Volume fraction] 36.9 % Low 37-47 [facility] Comment on above: Performed By: #### L 5500.0550, L500.4050, L100.0100, L500.4100 #### [facility] [address] [place], [address] Hemoglobin (Bld) [Mass/Vol] 11.5 g/dL Low 12.0-15. 0 [facility] Comment on above: Performed By: #### L 5500.0550, L500.4050, L100.0100, L500.4100 #### [facility] [address] [place], [address] IG% 0.300 Normal 0.0-0.9 [facility] Comment on above: Result Comment: IG% - Immature Granulocytes (promyelocytes, myelocytes and metamyelocytes) > 1% indicates that a LEFT SHIFT is Present. Performed By: #### L 5500.0550, L500.4050, L100.0100, L500.4100 #### [facility] [address] [place], [address] Lymphocytes/100 WBC (Bld) 32.7 % Normal 19-41 [facility] Comment on above: Performed By: #### L 5500.0550, L500.4050, L100.0100, L500.4100 #### [facility] [address] [place], [address] MCH (RBC) [Entitic mass] 25.1 pg Low 27.0-32.0 [facility] Comment on above: Performed By: #### L 5500.0550, L500.4050, L100.0100, L500.4100 #### [facility] [address] [place], [address] MCHC (RBC) [Mass/Vol] 31.2 g/dL Low 32-36 [facility] Comment on above: Performed By: #### L 5500.0550, L500.4050, L100.0100, L500.4100 #### [facility] [address] [place], [address] MCV (RBC) [Entitic vol] 80.6 fL Low 81-99 [facility] Comment on above: Performed By: #### L 5500.0550, L500.4050, L100.0100, L500.4100 #### [facility] [address] [place], [address] Monocytes/100 WBC (Bld) 7.8 % Normal 0-10 [facility] Comment on above: Performed By: #### L 5500.0550, L500.4050, L100.0100, L500.4100 #### [facility] [address] [place], [address] Neutrophils/100 WBC (Bld) 54.7 % Normal 47-70 [facility] Comment on above: Performed By: #### L 5500.0550, L500.4050, L100.0100, L500.4100 #### [facility] [address] [place], [address] Nucleated RBC (Bld) [#/Vol] 0 10*3/uL Normal 0-5 [facility] Comment on above: Performed By: #### L 5500.0550, L500.4050, L100.0100, L500.4100 #### [facility] [address] [place], [address] Platelet mean volume (Bld) [Entitic vol] 9.4 fL Normal 6.2-12.0 [facility] Comment on above: Performed By: #### L 5500.0550, L500.4050, L100.0100, L500.4100 #### [facility] [address] [place], [address] Platelets (Bld) [#/Vol] 569 10*3/uL High 150-450 [facility] Comment on above: Performed By: #### L 5500.0550, L500.4050, L100.0100, L500.4100 #### [facility] [address] [place], [address] RBC (Bld) [#/Vol] 4.58 10*6/uL Normal 4.2-5.4 [facility] Comment on above: Performed By: #### L 5500.0550, L500.4050, L100.0100, L500.4100 #### [facility] [address] [place], [address] RDW SD 42.7 fl Normal 35.1-43.9 [facility] Comment on above: Performed By: #### L 5500.0550, L500.4050, L100.0100, L500.4100 #### [facility] [address] [place], [address] WBC (Bld) [#/Vol] 6.3 10*3/uL Normal 4.4-11.0 [facility] Comment on above: Performed By: #### L 5500.0550, L500.4050, L100.0100, L500.4100 #### [facility] [address] [place], [address] Comprehensive Metabolic Prof ilon 11-26-2024 Albumin [Mass/Vol] 3.1 g/dL Low 3.2-5.0 [facility] Comment on above: Performed By: #### L 5500.0550, L500.4050, L100.0100, L500.4100 #### [facility] [address] [place], [address] Albumin/Globulin [Mass ratio] 0.7 {ratio} Low 0.9-2.4 [facility] Comment on above: Performed By: #### L 5500.0550, L500.4050, L100.0100, L500.4100 #### [facility] [address] [place], [address] ALK P 90 U/L Normal 45-117 [facility] Comment on above: Performed By: #### L 5500.0550, L500.4050, L100.0100, L500.4100 #### [facility] [address] [place], [address] ALT [Catalytic activity/Vol] 24 U/L Normal 13-56 [facility] Comment on above: Performed By: #### L 5500.0550, L500.4050, L100.0100, L500.4100 #### [facility] [address] [place], [address] AST [Catalytic activity/Vol] 15 U/L Normal 15-37 [facility] Comment on above: Performed By: #### L 5500.0550, L500.4050, L100.0100, L500.4100 #### [facility] [address] [place], [address] Bilirubin [Mass/Vol] 0.30 mg/dL Normal 0.20-1.00 [facility] Comment on above: Result Comment: For patients on eltrombopag therapy, use of Dimension [place] TBIL is not recommended. Performed By: #### L 5500.0550, L500.4050, L100.0100, L500.4100 #### [facility] [address] [place], [address] BUN/CRE 18.3 RATIO Normal 10-20 [facility] Comment on above: Performed By: #### L 5500.0550, L500.4050, L100.0100, L500.4100 #### [facility] [address] [place], [address] CA,Total 8.9 mg/dL Normal 8.5-10.1 [facility] Comment on above: Performed By: #### L 5500.0550, L500.4050, L100.0100, L500.4100 #### [facility] [address] [place], [address] Chloride [Moles/Vol] 109 mmol/L High 98-107 [facility] Comment on above: Performed By: #### L 5500.0550, L500.4050, L100.0100, L500.4100 #### [facility] [address] [place], [address] CO2 [Moles/Vol] 22.0 mmol/L Normal 21.0-32.0 [facility] Comment on above: Performed By: #### L 5500.0550, L500.4050, L100.0100, L500.4100 #### [facility] [address] [place], [address] Creatinine [Mass/Vol] 0.60 mg/dL Normal 0.55-1.02 [facility] Comment on above: Result Comment: The validity of the calculated GFR GFRAA in patients over 70 years has not been determined. Clinical correlation is essential. Performed By: #### L 5500.0550, L500.4050, L100.0100, L500.4100 #### [facility] [address] [place], [address] EST GFR - AA 146 mL/min Normal >60 [facility] Comment on above: Result Comment: Afri can Tajik GFR Calc Performed By: #### L 5500.0550, L500.4050, L100.0100, L500.4100 #### [facility] [address] [place], [address] GAP 6 Normal 5-15 [facility] Comment on above: Performed By: #### L 5500.0550, L500.4050, L100.0100, L500.4100 #### [facility] [address] [place], [address] GFR/1.73 sq M.predicted among non-blacks MDRD (S/P/Bld) [Vol rate/Area] 121 mL/min/{1.73_m2} Normal >60 [facility] Comment on above: Result Comment: Non- GFR Calc Performed By: #### L 5500.0550, L500.4050, L100.0100, L500.4100 #### [facility] [address] [place], [address] Globulin (S) [Mass/Vol] 4.3 g/dL High 2.2-4.2 [facility] Comment on above: Performed By: #### L 5500.0550, L500.4050, L100.0100, L500.4100 #### [facility] [address] [place], [address] Glucose [Mass/Vol] 95 mg/dL Normal 74-106 [facility] Comment on above: Performed By: #### L 5500.0550, L500.4050, L100.0100, L500.4100 #### [facility] [address] [place], [address] Potassium [Moles/Vol] 4.0 mmol/L Normal 3.5-5.1 [facility] Comment on above: Performed By: #### L 5500.0550, L500.4050, L100.0100, L500.4100 #### [facility] [address] [place], [address] Sodium [Moles/Vol] 137 mmol/L Normal 136-145 [facility] Comment on above: Performed By: #### L 5500.0550, L500.4050, L100.0100, L500.4100 #### [facility] [address] [place], [address] T PROT 7.4 g/dL Normal 6.4-8.2 [facility] Comment on above: Performed By: #### L 5500.0550, L500.4050, L100.0100, L500.4100 #### [facility] [address] [place], [address] Urea nitrogen [Mass/Vol] 11 mg/dL Normal 7-18 [facility] Comment on above: Performed By: #### L 5500.0550, L500.4050, L100.0100, L500.4100 #### [facility] [address] [place], [address] Lipid Profileon 11-26-2024 Cholesterol [Mass/Vol] 240 mg/dL High 200 [facility] Comment on above: Result Comment: <200 mg/dL Desirable 200-240 mg/dL Borderline >240 mg/dL High Risk Performed By: #### L 5500.0550, L500.4050, L100.0100, L500.4100 #### [facility] [address] [place], [address] Cholesterol in HDL [Mass/Vol] 59 mg/dL Normal [facility] Comment on above: Result Comment: The drugs N-Acetylcysteine and Metamizole may falsely depress this assay. Reference Range HDL <40 mg/dL Low HDL Cholesterol HDL >or= 60 mg/dL High HDL Cholesterol Performed By: #### L 5500.0550, L500.4050, L100.0100, L500.4100 #### [facility] [address] [place], [address] Cholesterol in LDL [Mass/Vol] 133 mg/dL High 0-130 [facility] Comment on above: Performed By: #### L 5500.0550, L500.4050, L100.0100, L500.4100 #### [facility] [address] [place], [address] Cholesterol in VLDL [Mass/Vol] 48 mg/dL High 5-40 [facility] Comment on above: Performed By: #### L 5500.0550, L500.4050, L100.0100, L500.4100 #### [facility] [address] [place], [address] Triglyceride [Mass/Vol] 239 mg/dL High [facility] Comment on above: Result Comment: The drugs N-Acetylcysteine and Metamizole may falsely depress this assay. Serum Triglycerides Reference Interval Normal <150 mg/dL Borderline high 150 - 199 mg/dL High 200 - 499 mg/dL Very High > or = 500 mg/dL Performed By: #### L 5500.0550, L500.4050, L100.0100, L500.4100 #### [facility] [place], [address] Internal Medicine Office Vis adela 11-11-2024 Internal Medicine Office Visit [facility] [address] [place] [address] [place] [address] OFFICE VISIT Date of Service: 11/12/24 MR#: [id number] Acct: [id number] Name: MILADYS DIETZ Rep #: [id number] : 1990 Provider: Dr. 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 CARE/C PT/CONSENT ONLY Chief Complaint: est care Political Organizer Required: No Accompanied by: Self Is patient in pain?: No Allergies amoxicillin Allergy (Mild, Verified 11/12/24 10:21) hives Medications ???Medication ???Instructions ???Recorded ???Confirmed ???Type multivitamin 1 tab PO DAILY 06/05/22 11/12/24 History cetirizine 10 mg capsule (Zyrtec) 10 mg PO DAILY PRN 06/19/23 11/12/24 History fluticasone propionate 50 1 spray intranasal DAILY 06/19/23 11/12/24 History mcg/actuation nasal spray,suspension (Flonase Allergy Relief) norgestimate 0.25 mg-ethinyl See Rx Instructions .Route 06/22/24 11/12/24 Rx estradiol 35 mcg tablet (Gisel) .COMPLEX #84 tabs psyllium husk 0.4 gram capsule 0.4 g PO ONCE 11/12/24 11/12/24 History (Metamucil) PFSH Medical History (Updated 11/12/24 @ 10:[address] Inga Hong MD) Gastrointestinal complaints Back problem Arthritis Anal fissure Surgical History History of wisdom tooth extraction, class II edentulism Family History (Updated 11/12/24 @ 10:[address] Inga Hong MD) Aunt Breast cancer Esophageal cancer Grandfather Diabetes Grandmother Arthritis RA Grandfather Heart disease Mother Anxiety Sister Allergy to gluten Social History (Updated 11/12/24 @ 10:[address] 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 current occupational exposures/hazards: No pets and animals: Yes leisure activities: games, reading and other history of recent travel: No sexually active: Yes Smoking Status: Never smoker second hand exposure: No alcohol intake: current alcohol intake frequency: holidays/special occasions only Alcohol type: wine details: social substance use type: does not use diet: low salt well-balanced diet: daily or most days caffeine: Yes Type: coffee eating out: 1-3 times/week during the past year weight has: increased > 10 lbs what type of physical activity do you participate in: bicycling frequency: 3-4 times per week duration: 15-30 minutes/day corbin/buddhist: oriental orthodox seatbelt use: always do you feel safe at home: Yes additional social history: [place] 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 She was seeing a provider in [place], but hasn't been seen in 5-6 years. She is due for some routine blood work. She is up to date on her screening. She does want a flu shot. She doesn't smoke and doesn't need any refills. She reports she is eating healthy and staying active. The patient has seasonal allergies. She takes flonase and zyrtec regularly which does seem to help. The patient has some dysmenorrhea which is managed by her OCP. She follows with OBGYN regularly who manages this medication. The patient reports back in 2022, she was having some diarrhea and constipation that seemed to alternate. She reports she cannot recall any specific trigger. She tried probiotics which made her constipated. She reports with her bowel problems, she started having discomfort with moving her bowels. She reports she developed some BRBPR and was diagnosed with an anal fissure. She was instructed to use sitz baths and metamucil. She reports it seemed to help her symptoms reporting that her bowels move much more regularly without the constipation and diarrhea. She reports last month, however, she had a bowel movement. She reports there was quite a bit of blood in the toilet. She denies the blood being mixed in the stool and she reports her stools have appeared normal in colour. She hasn't had any further bleeding since then. She would like to have it looked at again as she questions if she opened it back up again. The patient does report that she has been having some foul smelling flatus as well and isn't sure if that is related. She hasn't been having any problems with abdominal pain, nausea or vomitin (more content not included)... Normal [facility] SCRN MAMM (CAD)W/FABIOLA BILATo n 08-31-2024 SCRN MAMM (CAD)W/FABIOLA BILAT [facility] Imaging Services [address] [place], [place] [id number] SCRN MAMM (CAD)W/FABIOLA BILAT MR#: [id number] Acct: [id number] Name: MILADYS DIETZ Rep #: [id number] : 1990 F 34 From: Benjamin bazan MD PCP: Care Physician,No Primary Status: REG CL Study: SCRN MAMM (CAD)W/FABIOLA BILAT Date of Exam: 06/17 Exam# [id number] Ordering Dr: Gabriella Parada SHAKE MAKER SHAKE MAKER -C -[id number] MAMMOGRAPHY - BILATERAL SCREENING REASON FOR EXAM: Female, 34 years old. Routine annual screening examination. PERTINENT HISTORY: Aunt with breast cancer. TECHNIQUE: Digital bilateral breast fabiola (3D mammographic acquisition) in the CC and MLO projections. 2-D mediolateral oblique (MLO) and craniocaudad (CC) views of both breasts were obtained. CAD: Full Field Digital Mammography with Computer Added Detection was performed. COMPARISON: None. Baseline examination. FINDINGS: Breast Composition: The breasts are extremely dense, which lowers the sensitivity of mammography. There are no dominant masses or suspicious calcifications. No other significant abnormalities are identified. BI/SCRN MAMM (CAD)W/FABIOLA BILAT IMPRESSION: Negative screening mammogram. Yearly followup mammogram recommended. (A) ASSESSMENT CATEGORY: BIRADS Category 1: Negative. A letter regarding these results will be sent to the patient by the facility within 30 days. Approximately 10% of breast cancers are not detected by mammography. A normal mammogram should not delay biopsy of a clinically suspicious abnormality. 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 boulardii)) cetirizine 10 mg capsule (Zyrtec) 10 mg PO DAILY PRN 06/19/23 06/22/24 History fluticasone propionate 50 1 spray intranasal DAILY 06/19/23 06/22/24 History mcg/actuation nasal spray,suspension (Flonase Allergy Relief) norgestimate 0.25 mg-ethinyl See Rx Instructions .Route 06/22/24 06/22/24 Rx estradiol 35 mcg tablet (Gisel) .COMPLEX #84 tabs Is last menstrual period known: Yes Last Menstrual Period: 06/10/24 Post menopausal: No Patient : No : No PFSH Surgical History History of wisdom tooth extraction, class II edentulism Family History Aunt Breast cancer Esophageal cancer Grandfather Diabetes Social History Smoking Status: Never smoker alcohol intake: current details: social substance use type: does not use caffeine: Yes what type of physical activity do you participate in: walking seatbelt use: always do you feel safe at home: Yes 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 On sprintec for painful menses and works well. Some issues with libido but not enough that she would want to try another OCP type. 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.) Last PAP: 2021 History of abnormal PAP: no Last mammogram: baseline age 34 Female Reproductive History Last Menstrual Period: 06/10/24 Cycle Length: 21-35 Questions: metorrhagia: No, sexually active: Yes, dyspareunia: No and PCB: No ROS Const Constitutional: Denies fatigue, weight gain or weight loss Cardio Card: Denies chest pain Resp Resp: Denies cough or dyspnea on exertion GI GI: Denies abdominal pain, bloating, change in stool character, constipation or vomiting : Reports as per HPI; Denies difficulty voiding, pelvic pain, urinary frequency, urinary incontinence, urinary urgency, vaginal discharge or vaginal pruritus Exam Const General: cooperative, healthy appearing, no acute distress and well developed Orientation: alert, oriented to person and oriented to place HENMT Head: normal to inspection Neck Neck: normal visual inspection Thyroid: thyroid normal Lymphatic: no lymphadenopathy noted Chest Breast inspection: normal inspection of the breasts and normal inspection of the axillae Breast palpation: normal palpation of the breasts, normal palpation of the axillae and no axillary lymphadenopathy Resp Effort Inspection: normal respiratory effort GI Palpation: soft, no masses and nontender Rectal Exam: deferred External Female Exam: normal external appearance and normal appearance of the urethra Urethra: normal appearance of the urethra and normal palpation Speculum Exam - Vagina: normal appearance of the vagina and normal vaginal discharge Speculum Exam - Cervix: normal appearance of the cervix Bimanual Exam- Vagina Uterus: normal bimanual exam, uterine size normal, uterine shape normal and non-tender Bimanual Exam- Adnexa, other: normal adnexae, no masses, normal and non-tender Pelvic Support: normal Neuro General: patient alert and patient oriented x3 Psych Affect: normal affect Coding Level of Care Code Off vis,est,prev 18-39yrs Diagnoses Encounter for gynecological examination with abnormal finding Z01.411 Gynecological examination findings: abnormal findings PRESENT Family history of breast cancer Z80.3 Dysmenorrhea N94.6 Inf (more content not included)... Normal [facility] XR Injection Hysterosalpingo graphyon 05-18-2021 XR Injection Hysterosalpingography Fluoro Time Indication: Infertility 3.0 minutes of fluoro was provided to Dr. Chicas. Read by: FRANCIS ALBARRAN MD Approved by: FRANCIS ALBARRAN MD Date: 05/18/2021 8:45 AM [facility] Vital Signs Date Time Vital Sign Value Performing Clinician Facility 07-20-2023 10:23-0400 Body height 172.7 cm No Pcp Required [facility] 07-20-2023 10:23-0400 Body temperature 97.88 [degF] No Pcp Required [facility] 07-20-2023 10:23-0400 Diastolic blood pressure 94 mm[Hg] No Pcp Required [facility] 07-20-2023 10:23-0400 Heart rate 88 /min No Pcp Required [facility] 07-20-2023 10:23-0400 Respiratory rate 14 /min No Pcp Required [facility] 07-20-2023 10:23-0400 SaO2% (BldA) [Mass fraction] 98 % No Pcp Required [facility] 07-20-2023 10:23-0400 Systolic blood pressure 134 mm[Hg] No Pcp Required [facility] 06-05-2022 11:48-0400 Body height 172.72 cm No Primary Care Physician [facility] Work Phone: 06-05-2022 11:48-0400 Body mass index (BMI) [Ratio] 24.2 kg/m2 No Primary Care Physician [facility] Work Phone: 06-05-2022 11:48-0400 Body weight 72.34 kg No Primary Care Physician [facility] Work Phone: 06-05-2022 11:48-0400 Diastolic blood pressure 70 mm[Hg] No Primary Care Physician [facility] Work Phone: 06-05-2022 11:48-0400 Systolic blood pressure 118 mm[Hg] No Primary Care Physician [facility] Work Phone: Encounters Encounter Date Encounter Type Care Provider Facility Start: 01-22-2025 Encounter for other preprocedural examination [facility] Start: 01-11-2025 End: 01-11-2025 ambulatory [facility] Facility:[facility] Start: 12-07-2024 End: 12-07-2024 ambulatory Madyson Robotham Facility:[facility] Start: 11-26-2024 End: 11-26-2024 ambulatory Inga Hong Facility:[facility] Start: 11-12-2024 End: 11-12-2024 ambulatory No Primary Care Physician Facility:[facility] Start: 08-31-2024 End: 08-31-2024 ambulatory Gabriella Tal SHAKE MAKER Facility:[facility] Start: 06-22-2024 End: 06-22-2024 ambulatory Gabriella Parada SHAKE MAKER Facility:[facility] Start: 07-20-2023 End: 07-20-2023 Emergency department patient visit Markie Kaur [facility] Start: 06-05-2022 End: 06-05-2022 Patient encounter procedure No Primary Care Physician [facility], Specimen Start: 06-05-2022 End: 06-05-2022 Patient encounter procedure No Primary Care Physician [facility] Start: 05-18-2021 End: 05-18-2021 ambulatory [facility] Plan of Treatment Date Care Activity Detail Author Start: 06-05-2022 Liquid based cervica l cytology screening [facility] Work Phone: Path report.final Dx Spec [facility] Work Phone: Payers Date Payer Category Payer Unknown [id number] 2024 Unknown [id number] 2024 Unknown [id number] 2024 Self-pay [id number] 1959 Unknown [id number] Unknown [id number] Unknown [facility] Unknown [id number] Unknown [id number] Unknown [id number] Unknown [id number] Unknown [id number] Unknown [id number] Unknown [id number] Social History Date Type Detail Facility Start: 06-05-2022 Tobacco smoking stat [facility] Unknown if ever smoked [facility] Work Phone: Start: 1990 Sex Assigned At Female [facility] Work Phone: Clinical Note 01-11-2025 Note Date & Type Note Facility 01-11-2025 Note [facility] Medical Records Department [address] [place] [address] History Physical Exam 01/11/25 0719 MR#: [id number] Acct: [id number] Name: MILADYS DIETZ Rep #: [id number] : 1990 34 From: Madyson Rdz MD PCP: Dr. Inga Hong MD Status:[facility] Location: [place] [address] HPI - General General Date of Service: 01/11/25 HPI Narrative MILADYS BEAN, is a 34 F who presents for screening colonoscopy due to bright red blood per rectum and anal fissure. P patient did states she has slight amount of blood at the end of the prep. However that did resolve with the treatment of the fissure. Office visit 12/07/2024 HPI HPI: 34-year-old female presents due to bright red blood per rectum history and history of anal fissure. Patient states she noticed the fissure in fall 2022 went to an urgent care was told increased her fiber/water on sitz bath's and also could apply some Neosporin to it. Patient has been having bowel movements daily with her Metamucil powder and gummy. Patient states she will occasionally have some bright red blood per rectum. However in September 2024 she did have quite a bit of bright red blood per rectum which was concerning to her. Patient denies any immediate family history of colon cancer. Patient's paternal aunt had esophageal cancer and paternal first cousin???aunts daughter had her cecum removed but patient states there is no cancer. [facility] Medical History Wears glasses Alcohol use High cholesterol Syncope Heartburn Non-smoker History of edema Hemorrhoid Gastrointestinal complaints Back problem Arthritis Anal fissure Home Medications ???Medication ???Instructions ???Recorded ???Last Taken ???Type multivitamin 1 tab PO DAILY 06/05/22 01/10/25 H istory cetirizine 10 mg capsule (Zyrtec) 10 mg PO DAILY PRN allergy sympto ms 06/19/23 01/10/25 History fluticasone propionate 50 1 spray intranasal DAILY 06/19/23 01/10/25 History mcg/actuation nasal spray,suspension (Flonase Allergy Relief) norgestimate 0.25 mg-ethinyl See Rx Instructions .Route 4 01/10/25 Rx estradiol 35 mcg tablet (Gisel) .COMPLEX #84 tabs psyllium husk 0.4 gram capsule 0.4 g PO DAILY 11/12/24 01/09/25 H istory (Metamucil) Diltiazem 10mg/Lidocaine 50mg 1 supp OK BID PRN pain 01/07/25 Un known History Suppository 30 supp suppository Allergy/AdvReac Type Severity Reaction Status Date / Time nickel Allergy Intermediate Rash Verified 01/11/25 07:14 amoxicillin Allergy Mild hives Verified 01/11/25 07:14 Family History Aunt Breast cancer Esophageal cancer Grandfather Diabetes Grandmother Arthritis RA Grandfather Heart disease Mother Anxiety Sister Allergy to gluten Surgical History History of wisdom tooth extraction, class II edentulism Social History adopted: No household members: spouse number of children: 0 current occupational status: employed 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 current occupational exposures/hazards: No pets and animals: Yes leisure activities: games, reading and other history of recent travel: No sexually active: Yes Smoking Status: Never smoker second hand exposure: No alcohol intake: current alcohol intake frequency: holidays/special occasions only Alcohol type: wine details: social substance use type: does not use diet: low salt well-balanced diet: daily or most days caffeine: Yes Type: coffee eating out: 1-3 times/week during the past year weight has: increased > 10 lbs what type of physical activity do you participate in: bicycling frequency: 3-4 times per week duration: 15-30 minutes/day corbin/buddhist: oriental orthodox seatbelt use: always do you feel safe at home: Yes additional social history: [place] 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[employer] Past Medical/Surgical History Planned Operation Planned Operative Procedure(s): COLONOSCOPY Previous Hospitalizations/Surgeries HX Hospitalizations: No Any Problems With Anesthesia: No (FAMILY HISTORY PONV) You/Your Family Experience Fever (Hyperthermia) With Anes: No Cholinesterase deficiency: No Cardiovascular Hx Hypertension: No Respiratory Hx Sleep Apnea: No Hx Respiratory Tract Infection/Cold (presently): No Do You Snore Loudly (louder than talking or can be heard): No Do You Often Feel Tired/ Fatigued/ Sleepy Dring Daytime?: No Has Anyone Observed You Stop Breathing During Sleep?: No Result (for STOP score): Negative Smoking Status: Never smoker Neurological Does patient have nerve stimulator: No Reproduction : No Miscell (more content not included)... [facility] Evaluation note Note Date & Type Note Facility Evaluation note Diagnosis Onset Date Dysmenorrhea acute Infertility acute Encounter for routine gyneco logical examination noneactive [facility] Work Phone: Summary Purpose Family History No Family History Records Found Relationship Condition Age at Onset Recorded Date/T rain aunt Malignant neoplasm of breast Unknown Malignant neoplasm of esophagus Unknown grandfather Diabetes mellitus Unknown Advance Directives No Advanced Directives Records FoundNo Advanced Directives Records Found Chief Complaint and Reason for Visit Chief Complaint Annual ([employer]) Reason for Visit Dysmenorrhea Infertility Encounter for routine gynecological examination Additional Source Comments INFORMATION SOURCE (unrecogn ized section and content) DATE CREATED AUTHOR 05/31/2021 [facility] DATE CREATED AUTHOR AUTHOR'S ORGANIZ ATION 01/24/2025 [facility] Goals (unrecognized section and content) Goals may be documented in a n alternate section <item> Privacy Markings (unrecogniz ed section and content) Section Author: Lis Burden PROHIBITION ON REDISCLOSURE OF CONFIDENTIAL INFORMATION This notice accompanies a disclosure of information concerning a client made to you with the consent of such client. FOR RECORDS PERTAINING TO PATIENTS WHO ARE OR HAVE BEEN ENROLLED IN A CHEMICAL DEPENDENCY/SUBSTANCEABUSE PROGRAM, SOME INFORMATION MAY BE OMITTED. This clinical summary was aggregated from multiple sources. Caution should be exercised in using it in the provision of clinical care. This summary normalizes information from multiple sources, and as a consequence, information in this document may materially change the coding, format and clinical context of patient data. In addition, data may be omitted in some cases. CLINICAL DECISIONS SHOULD BE BASED ON THE PRIMARY CLINICAL RECORDS. [facility] provides no warranty or guarantee of the accuracy or completeness of information in this document.
[2025-07-24 10:51] LABS: Hematocrit 35.0 % (37-47); Hemoglobin 11.2 g/dL (12.0-15.0); Immature Granulocytes Count 0.000 X10^3/uL (0.0-0.0); Mean Corp Hgb Conc 32.0 g/dL (32-36); Mean Corpuscular Volume 78.8 fL (81-99); Mean Platelet Vol. 9.2 fl (6.2-12.0); NRBC Flagged by Analyzer 0 % (0-5); Platelet Count 597 K/mm3 (150-450); RBC Distribution Width CV 15.1 % (11.6-14.6); RBC Distribution Width SD 43.3 fl (35.1-43.9); Red Blood Count 4.44 M/mm3 (4.2-5.4); White Blood Count 7.6 K/mm3 (4.4-11.0)
== END | disposition home or self-care (01) ==
LOC: LAB 09:50
PROVIDERS: PCP Internal Medicine; Referring Provider Internal Medicine; Visit Provider Internal Medicine
DX: K62.5 Hemorrhage of anus and rectum (principal)
CPT/HCPCS: 36415; 85025

== ENCOUNTER → 2025-07-31 | Outpatient (CLI) | payer SELFPAY ==
--- OUTSIDE RECORDS SUMMARY | 2025-07-31 11:02 | XMS RPT_ITS | CCD ---
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 Xiong Primary Care Provider Gely LUJAN, Dr. Xiong Attending Provider Gely LUJAN, Dr. Xiong Referring Provider Robotstephan, Madyson Attending Unavailable Care Physician, No Primary Referring Unava ilable [place], Inga Primary Care Unavailable Care Physician, No Primary Primary Care Unava ilable Care Physician, No Primary Referring Unava ilable Gely, Inga Attending Unavailable Gely, Inga Referring Unavailable Gely, Inga Primary Care Unavailable Robotham, Madyson Attending Unavailable Care Physician, No Primary Primary Care Unava ilable Tal ART PREPARATOR, Gabriella Attending Unavailable Tal ART PREPARATOR, Gabriella Referring Unavailable Gely, Inga Primary Care Unavailable Gely, Inga Attending Unavailable [place], Inga Referring Unavailable Gely, Inga Attending Unavailable [place], Inga Referring Unavailable [place], Inga Primary Care Unavailable Gely, Inga Referring Unavailable [place], Inga Primary Care Unavailable Robotham, Madyson Consulting Unavailable Robotham, Madyson Attending Unavailable Gely, Inga Attending Unavailable [place], Inga Referring Unavailable Gely, Inga Primary Care Unavailable Allergies Allergy Classification Reported Allergen(s) Allergy Type Date of Onset Reaction(s) Facility nickel (1 source) nickel; Translations: [Nickel] Drug Allergy [facility] Repository Penicillins (antibiotic) (1 source) Amoxicillin Drug Allergy [facility] Repository (4 sources) Amoxicillin Drug Allergy 06-05-2022 hives [facility] Work Phone: (2 sources) nickel Drug Allergy 01-11-2025 Rash [facility] (1 source) Amoxicillin Drug Allergy 07-29-2025 [facility] Repository (1 source) nickel Drug Allergy 07-29-2025 [facility] Repository Medications Current Medications Medication Drug Class(es) Dates Sig (Normalized) Sig (Original) cetirizine hydrochloride 10 mg oral capsule (2 sources) Histamine-1 Receptor Antagonist Start: 06-19-2023 take 1 capsule by mouth once daily as needed Cetirizine (Zyrtec) 10 mg capsule Active 10 mg PO DAILY as needed for allergy symptoms June 19, 2023 12:00am Norgestimate-Ethinyl Estradiol (8 sources) Progestin, Estrogen Start: 06-22-2024 take 1 tablet by mouth once daily Norgestimate-Ethi nyl Estradiol (Gisel) 0.25-35 mg-mcg tablet Active 0 .ROUTE .COMPLEX 84 4 June 22, 2024 10:44am TAKE 1 TABLET BY MOUTH EVERY DAY Start: 08-01-2023 End: 06-22-2024 take 1 tablet by mouth once daily Norgestimate-Ethinyl Estradiol (Gisel) 0.25-35 mg-mcg tablet Discontinued 0 .ROUTE .COMPLEX 84 4 August 01, 2023 8:01am June 22, 2024 10:44am TAKE 1 TABLET BY MOUTH EVERY DAY Start: 06-05-2022 End: 08-01-2023 Norgestimate-Ethinyl Estradi ol (Sprintec (28)) 0.25-35 mg-mcg tablet Discontinued 1 {tbl} PO daily 84 June 05, 2022 12:00am August 01, 2023 8:01am Start: 06-05-2022 take 1 tablet by leonor th once daily Norgestimate-Ethinyl Estradiol (Sprintec (28)) 0.25-35 mg-mcg tablet Active 1 TABLET PO daily 84 Natasha 12th, 2022 12:00am Sprintec Quantit y: 0 Refills: 0 Ordered: 20-Jul-2023 Rashad Arreola Generic Substitution Allowed fluticasone propionate 0.05 mg/actuat metered dose nasal spray (2 sources) Corticosteroid Start: 06-19-2023 take 50 ug nasal route once daily Fluticasone Propionate (Flonase Allergy Relief) 50 mcg/actuation spray,suspension Active 1 NMA INTRANASAL DAILY June 19, 2023 12:00am administer into each nostril Inulin (1 source) Start: 07-29-2025 take 1 tablet by mouth once daily Inulin (Fiber Gummies) 1.7 gram tablet,chewable Active 1.7 g PO daily July 29, 2025 12:00am Multivitamin preparation (1 source) Start: 06-05-2022 take 1 tablet by mouth once daily Multivitamin Active 1 TABLET PO DAILY June 05, 2022 12:00am Multivitamin tablet (2 sources) Start: 06-05-2022 Multivitamin t ablet Active 1 {tbl} PO DAILY June 05, 2022 12:00am psyllium 400 mg oral capsule (2 sources) Start: 11-12-2024 Psyllium Husk (Metamucil) 0.4 gram capsule Active 0.4 g PO DAILY November 12, 2024 1:00am Completed/Discontinued Medications Medication Drug Class(es) Dates Sig (Normalized) Sig (Original) Diltiazem 10mg/Lidocaine 50mg Suppository 30 supp suppository (4 sources) Start: 01-07-2025 End: 07-29-2025 Diltiazem 10mg/Lidocaine 50mg Suppository 30 supp suppository Discontinued 1 NMA RC TWICE A DAY as needed for pain January 07, 2025 1:00am July 29, 2025 9:01am diltiazem HCl (bulk) powder 300 mg; lidocaine (bulk) powder 1500 mg; Per 30 supp Insert 1 suppository rectally twice daily x 2 weeks Start: 01-07-2025 Diltiazem 10mg /Lidocaine 50mg Suppository 30 supp suppository Active 1 NMA RC TWICE A DAY as needed for pain January 07, 2025 1:00am diltiazem HCl (bulk) powder 300 mg; lidocaine (bulk) powder 1500 mg; Per 30 supp Insert 1 suppository rectally twice daily x 2 weeks Start: 12-07-2024 End: 01-07-2025 Diltiazem 10mg/Lidocaine 50m g Suppository 30 supp suppository Discontinued 1 NMA RC TWICE A DAY 30 14 1 December 07, 2024 1:00am January 07, 2025 5:24pm diltiazem HCl (bulk) powder 300 mg; lidocaine (bulk) powder 1500 mg; Per 30 supp Insert 1 suppository rectally twice daily x 2 weeks saccharomyces boulardii 250 mg oral capsule (2 sources) Start: 06-19-2023 End: 11-12-2024 take 1 capsule by mouth twice daily Saccharomyces Boulardii (Daily Probiotic (S. Boulardii)) 250 mg capsule Discontinued 250 mg PO TWICE A DAY June 19, 2023 12:00am November 12, 2024 11:21am Problems Active Problems Problem Classification Problem Date Documented Da te Episodic/Chronic Contraceptive and procreative management (2 sources) Encounter for fertility testing; Translations: [ENCOUNTER FOR FERTILITY TESTING] Onset: Episodic Gastrointestinal hemorrhage (4 sources) Gastrointestinal hemorrhage; Translations: [Hemorrhage of anus and rectum] Onset: 12-09-2024 Episodic Hemorrhoids (2 sources) Hemorrhoids; Translations: [Unspecified hemorrhoids] 12-07-2024 Episodic Menstrual disorders (5 sources) Dysmenorrhea; Translations: [Dysmenorrhea, unspecified] Chronic Comment on above: controlled with OCP Other upper respiratory disease (1 source) Seasonal allergy; Translations: [Other seasonal allergic rhinitis] 07-29-2025 Chronic Residual codes; unclassified (2 sources) Family history of breast cancer; Translations: [Family history of malignant neoplasm of breast] 06-22-2024 Episodic Comment on above: aunt Residual codes; unclassified (2 sources) Infertile 06-19-2023 Episodic Comment on above: Saw RGI: with low sperm, declined IVF. Pursuing adoption/[employer]. Unclassified (2 sources) Infertile; Translations: [Infertility] Past or Other Problems Problem Classification Problem Date Documented Da te Episodic/Chronic Anal and rectal conditions (8 sources) Rectal pain; Translations: [Anal fissure] Onset: 11-12-2024 07-20-2023 Episodic Comment on above: RECTAL PAIN Other gastrointestinal disorders (1 source) Flatulence; Translations: [Flatulence] Onset: 11-12-2024 Episodic Other screening for suspected conditions (not mental disorders or infectious disease) (2 sources) Encounter for screening for cardiovascular disorders; Translations: [Encounter for screening mammogram for malignant neoplasm of breast] Onset: 09-26-2024 Episodic Results Test Name Value Interpretation Reference Range Facility Internal Medicine Office Vis itolana 07-28-2025 Internal Medicine Office Visit [facility] [address] [place] [address] [place] [address] OFFICE VISIT Date of Service: 07/29/25 MR#: [id number] Acct: [id number] Name: MILADYS DIETZ Rep #: [id number] : 1990 Provider: Dr. 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: No Accompanied by: Self Is patient in pain?: No Allergies nickel Allergy (Intermediate, Verified 07/29/25 09:00) Rash amoxicillin Allergy (Mild, Verified 07/29/25 09:00) hives Medications ???Medication ???Instructions ???Recorded ???Confirmed ???Type multivitamin 1 tab PO DAILY 06/05/22 07/29/25 H istory cetirizine 10 mg capsule (Zyrtec) 10 mg PO DAILY PRN allergy sympto ms 06/19/23 07/29/25 History fluticasone propionate 50 1 spray intranasal DAILY 06/19/23 07/29/25 History mcg/actuation nasal spray,suspension (Flonase Allergy Relief) norgestimate 0.25 mg-ethinyl See Rx Instructions .Route 4 07/29/25 Rx estradiol 0.035 mg tablet (Gisel) .COMPLEX #84 tabs psyllium husk 0.4 gram capsule 0.4 g PO DAILY 11/12/24 07/29/25 H istory (Metamucil) inulin 1.7 gram chewable tablet 1.7 g PO QDAY 07/29/25 07/29/25 Hi story (Fiber Gummies) [facility] Medical History Wears glasses Alcohol use High cholesterol Syncope Heartburn Non-smoker History of edema Hemorrhoid Gastrointestinal complaints Back problem Arthritis Anal fissure Surgical History History of wisdom tooth extraction, class II edentulism Family History Aunt Breast cancer Esophageal cancer Grandfather Diabetes Grandmother Arthritis RA Grandfather Heart disease Mother Anxiety Sister Allergy to gluten Social History (Updated 07/29/25 @ 09:[address] 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 1. Little interest or pleasure in doing things: not at all 2. Feeling down, depressed, or hopeless: not at all 3. Trouble falling or staying asleep, or sleeping too much: not at all 4. Feeling tired or having little energy: more than half the days 5. Poor appetite or overeating: not at all 6. Feeling bad about yourself - or that you are a failure or have let yourself and your family down: not at all 7. Trouble concentrating on things, such as reading the newspaper or watching television: several days 8. Moving or speaking so slowly that other people could have noticed? - Or the opposite - being so fidgety or restless that you have been moving around a lot more than usual: not at all 9. Thoughts that you would be better off or of hurting yourself in some way: not at all Total score: 3 If you checked off any problems, how difficult have these problems made it for you to do your work, take care of things at home, or get along with other people?: not difficult at all Source: Developed by Drs. Sp Ortiz, Aggie Bell, Logan Jerome and colleagues, with an educational amilcar from [employer]. HPI HPI Details: MILADYS BEAN, is a 34 F who presents to the office today for a follow up. She is up to date on her routine blood work. She is up to date on her screening. She isn't due for any immunizations. She do (more content not included)... Normal [facility] Absolute lymphocyte countOrd ered By: Inga Hong on 07-24-2025 Lymphocytes Auto (Unsp spec) [#/Vol] 2.19 10*3/uL 0.83-4.51 [facility] Absolute neutrophil countOrd ered By: Inga Hong on 07-24-2025 Neutrophils (Bld) [#/Vol] 4.6 10*3/uL 2.0-7.7 [facility] Automated lymphocyte count a s percentage of total leukocytesOrdered By: Inga Hong on 07-24-2025 Lymphocytes/100 WBC Auto (Unsp spec) 28.8 % 19-41 [facility] Basophil percentageOrdered B y: Inga Hong on 07-24-2025 Basophils/100 WBC (Bld) 0.4 % 0-1 [facility] CBC W/Diff, Automatedon 08-3 0-2024 Absolute Lymph 2.19 X10 3/uL Normal 0.83-4.51 [facility] Comment on above: Performed By: #### L 100.0100 #### [facility] [address] [place], [address] Absolute Neut 4.6 X10 3/uL Normal 2.0-7.7 [facility] Comment on above: Performed By: #### L 100.0100 #### [facility] [address] [place], [address] Basophils/100 WBC (Bld) 0.4 % Normal 0-1 [facility] Comment on above: Performed By: #### L 100.0100 #### [facility] [address] [place], [address] Eosinophils/100 WBC (Bld) 3.0 % Normal 0-5 [facility] Comment on above: Performed By: #### L 100.0100 #### [facility] [address] [place], [address] Erythrocyte distribution width (RBC) [Ratio] 15.1 % High 11.6-14.6 [facility] Comment on above: Performed By: #### L 100.0100 #### [facility] [address] [place], [address] Hematocrit (Bld) [Volume fraction] 35.0 % Low 37-47 [facility] Comment on above: Performed By: #### L 100.0100 #### [facility] [address] [place], [address] Hemoglobin (Bld) [Mass/Vol] 11.2 g/dL Low 12.0-15. 0 [facility] Comment on above: Performed By: #### L 100.0100 #### [facility] [address] [place], [address] IG% 0.000 Normal 0.0-0.9 [facility] Comment on above: Result Comment: IG% - Immature Granulocytes (promyelocytes, myelocytes and metamyelocytes) > 1% indicates that a LEFT SHIFT is Present. Performed By: #### L 100.0100 #### [facility] [address] [place], [address] Lymphocytes/100 WBC (Bld) 28.8 % Normal 19-41 [facility] Comment on above: Performed By: #### L 100.0100 #### [facility] [address] [place], [address] MCH (RBC) [Entitic mass] 25.2 pg Low 27.0-32.0 [facility] Comment on above: Performed By: #### L 100.0100 #### [facility] [address] [place], [address] MCHC (RBC) [Mass/Vol] 32.0 g/dL Normal 32-36 [facility] Comment on above: Performed By: #### L 100.0100 #### [facility] [address] [place], [address] MCV (RBC) [Entitic vol] 78.8 fL Low 81-99 [facility] Comment on above: Performed By: #### L 100.0100 #### [facility] [address] [place], [address] Monocytes/100 WBC (Bld) 7.4 % Normal 0-10 [facility] Comment on above: Performed By: #### L 100.0100 #### [facility] [address] [place], [address] Neutrophils/100 WBC (Bld) 60.4 % Normal 47-70 [facility] Comment on above: Performed By: #### L 100.0100 #### [facility] [address] [place], [address] Nucleated RBC (Bld) [#/Vol] 0 10*3/uL Normal 0-5 [facility] Comment on above: Performed By: #### L 100.0100 #### [facility] [address] [place], [address] Platelet mean volume (Bld) [Entitic vol] 9.2 fL Normal 6.2-12.0 [facility] Comment on above: Performed By: #### L 100.0100 #### [facility] [address] [place], [address] Platelets (Bld) [#/Vol] 597 10*3/uL High 150-450 [facility] Comment on above: Performed By: #### L 100.0100 #### [facility] [address] [place], [address] RBC (Bld) [#/Vol] 4.44 10*6/uL Normal 4.2-5.4 [facility] Comment on above: Performed By: #### L 100.0100 #### [facility] [address] [place], [address] RDW SD 43.3 fl Normal 35.1-43.9 [facility] Comment on above: Performed By: #### L 100.0100 #### [facility] [address] [place], [address] WBC (Bld) [#/Vol] 7.6 10*3/uL Normal 4.4-11.0 [facility] Comment on above: Performed By: #### L 100.0100 #### [facility] [address] [place], [address] Eosinophil percentageOrdered By: Inga Hong on 07-24-2025 Eosinophils/100 WBC (Bld) 3.0 % 0-5 [facility] Erythrocyte distribution wid th ratioOrdered By: Inga Hong on 07-24-2025 Erythrocyte distribution width (RBC) [Ratio] 15.1 % High 11.6-14.6 [facility] Erythrocyte distribution wid th standard deviationOrdered By: Inga Hong on 07-24-2025 Erythrocyte distribution width (RBC) [Ratio] 43.3 fl 35.1-43.9 [facility] Hematocrit Auto (Bld) [Volum e fraction]Ordered By: Inga Hong on 07-24-2025 Hematocrit (Bld) [Volume fraction] 35.0 % Low 37-47 [facility] Hemoglobin measurementOrdere d By: Inga Hong on 07-24-2025 Hemoglobin (Bld) [Mass/Vol] 11.2 g/dL Low 12.0-15. 0 [facility] Immature granulocytes/100 WB C Auto (Bld)Ordered By: Inga Hong on 07-24-2025 Immature granulocytes/100 WBC (Bld) 0.000 % 0.0-0.9 [facility] Comment on above: IG% - Immature Granu locytes (promyelocytes, myelocytes and metamyelocytes) > 1% indicates that a LEFT SHIFT is Present. MCV (mean corpuscular volume ) determinationOrdered By: Inga Hong on 07-24-2025 MCV (RBC) [Entitic vol] 78.8 fL Low 81-99 [facility] Mean corpuscular hemoglobin (MCH) determinationOrdered By: Inga Hong on 07-24-2025 MCH (RBC) [Entitic mass] 25.2 pg Low 27.0-32.0 [facility] Mean corpuscular hemoglobin concentration (MCHC) determinationOrdered By: Inga Hong on 07-24-2025 MCHC (RBC) [Mass/Vol] 32.0 g/dL 32-36 [facility] Mean platelet volume determi nationOrdered By: Inga Hong on 07-24-2025 Platelet mean volume (Bld) [Entitic vol] 9.2 fL 6.2-12.0 [facility] Monocyte percentageOrdered B y: Inga Hong on 07-24-2025 Monocytes/100 WBC (Bld) 7.4 % 0-10 [facility] Neutrophil percentageOrdered By: Inga Hong on 07-24-2025 Neutrophils/100 WBC (Bld) 60.4 % 47-70 [facility] Nucleated red blood cell per centageOrdered By: Inga Hong on 07-24-2025 Nucleated RBC/100 WBC (Bld) [Ratio] 0 % 0-5 [facility] Platelet countOrdered By: Torin Hong on 07-24-2025 Platelets (Bld) [#/Vol] 597 10*3/uL High 150-450 [facility] RBC Auto (Bld) [#/Vol]Ordere d By: Inga Hong on 07-24-2025 RBC (Bld) [#/Vol] 4.44 10*6/uL 4.2-5.4 [facility] White blood cell (WBC) count Ordered By: Inga Hong on 07-24-2025 WBC (Bld) [#/Vol] 7.6 10*3/uL 4.4-11.0 [facility] Colonoscopy Reporton 025 Colonoscopy Report [facility] Medical Records Department [address] [place] [address] Colonoscopy Report MR#: [id number] Acct: [id number] Name: MILADYS DIETZ Rep #: [id number] : 1990 34 From: Madyson Rdz MD PCP: Dr. Inga Hong MD Status:[facility] Patient Name: Miladys Bean Procedure Date: 01/11/2025 8:05 AM Date of : 1990 Age: 34 Procedure: Colonoscopy Indications: Rectal bleeding Providers: Madyson Rdz MD Referring MD: Inga Hnog Md Medicines: Monitored Anesthesia Care Patient Profile: [...] screening purposes. Procedure Code(s): --- Professional --- 17890, Colonoscopy, flexible; diagnostic, including collection of specimen(s) by brushing or washing, when performed (separate procedure) Diagnosis Code(s): --- Professional --- K60.2, Anal fissure, unspecified K62.5, Hemorrhage of anus and rectum CPT copyright 2021 [employer]. All rights reserved. The codes documented in this report are preliminary and upon silo filler review may be revised to meet current compliance requirements. MD Madyson Pineda MD 01/11/2025 8:35:03 AM This report has been signed electronically. Number of Addenda: 0 Note Initiated On: 01/11/2025 8:05 AM 01/11/25 0835 Date Madyson Polanco Signature: Date (if indicated) CC: Dr. Inga Hong MD; Dr. Madyson Rdz MD Date Dictated: 01/11/25804 Date Transcribed: Bracelet Form Coverer: TR Signed [facility] MR/POSTOP.ANEon 01-11-2025 MR/POSTOP.[facility] Medical Records Department [address] [place] [address] Anesthesia Postop Eval I 01/11/25 0840 MR#: [id number] Acct: [id number] Name: MILADYS DIETZ Rep #: [id number] : 1990 34 From: Francisco Javier Garcia PCP: Dr. Inga Hong MD Status:REG [facility] Y Race: C Location: [place] [address] Anesthesia: Postop Eval I Current Vital Signs [...] Anesthesia document: Postop Eval 1 completed: Yes 01/11/25840 Date Francisco Javier Polanco Signature: Date CC: Signed [facility] [id number] 01-11-2025 MR/POSTOPAN2 [facility] Medical Records Department [address] [place] [address] Anesthesia Postop Eval II 01/11/25 0859 MR#: [id number] Acct: [id number] Name: MILADYS DIETZ Rep #: [id number] : 1990 34 From: Jesu Ross MD PCP: Dr. Inga Hong MD Status:REG [facility] Y Race: C Location: [address] Anesthesia Postop Eval I Sum Postop Eval [...] No Vomiting: No 01/11/25 0859 Date Jesu Ross MD Cosigner Signature: Date CC: Signed Normal [facility] ,Urineon 01-11-2025 Beta HCG ( test) Ql (U) Negative [facility] Comment on above: Result Comment: Very dilute urine specimens, as indicated by a low specific gravity, may not contain pharmaceutical specialty representative levels of hCG. If is still suspected, a first morning urine specimen should be collected 48 hours later and tested. Performed By: #### L 400.7600 #### [facility] [address] [place], [address] Surgery Visit Reporton 12-07 Surgery Visit Report [facility] [address] [place] [address] OFFICE VISIT Date of Service: 12/07/24 MR#: [id number] Acct: [id number] Name: MILADYS DIETZ Rep #: [id number] : 1990 Provider: Dr. 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 Normal [facility] L5500.0550on 11-30-2024 BEEF <0.10 Normal Class 0 [facility] Comment on above: Performed By: #### L 5500.0550, L500.4050, L100.0100, L500.4100 #### [facility] [address] [place] [address] CHOCOLATE <0.10 Normal Class 0 [facility] Comment on above: Performed By: #### L 5500.0550, L500.4050, L100.0100, L500.4100 #### [facility] [address] [facility] [address] CODFISH <0.10 Normal Class 0 [facility] Comment on above: Performed By: #### L 5500.0550, L500.4050, L100.0100, L500.4100 #### [facility] Laboratory [address] [place] [id number] COMMENT Comment Normal . [facility] Comment on above: Result Comment: She [place] of Specific IgE Class Description of Class ----- < 0.10 0 Negative 0.10 - 0.31 0/I Equivocal/Low 0.32 - 0.55 I Low 0.56 - 1.40 II Moderate 1.41 - 3.90 III High 3.91 - 19.00 IV Very High 19.01 - 100.00 V Very High >100.00 Very High Performed By: #### L 5500.0550, L500.4050, L100.0100, L500.4100 #### [facility] Laboratory [address] [place], [place], [id number] CORN <0.10 Normal Class 0 [facility] Comment on above: Performed By: #### L 5500.0550, L500.4050, L100.0100, L500.4100 #### [facility] Laboratory [address] [place], [place], [id number] EGG, WHOLE <0.10 Normal Class 0 [facility] Comment on above: Result Comment: Perf ormed at: [address] [id number] Administrative Assistant Coordinator: Kymberly Holder MD, Phone: [phone] Performed By: #### L 5500.0550, L500.4050, L100.0100, L500.4100 #### [facility] Laboratory [address] [place], [place], [id number] MILK (COW) <0.10 Normal Class 0 [facility] Comment on above: Performed By: #### L 5500.0550, L500.4050, L100.0100, L500.4100 #### [facility] Laboratory [address] [place], [place], [id number] MUSSELS <0.10 Normal Class 0 [facility] Comment on above: Performed By: #### L 5500.0550, L500.4050, L100.0100, L500.4100 #### [facility] Laboratory [address] [place], [address] PEANUT <0.10 Normal Class 0 [facility] Comment on above: Performed By: #### L 5500.0550, L500.4050, L100.0100, L500.4100 #### [facility] [address] [place], [address] PORK <0.10 Normal Class 0 [facility] Comment on above: Performed By: #### L 5500.0550, L500.4050, L100.0100, L500.4100 #### [facility] Laboratory [address] [place], [address] SALMON <0.10 Normal Class 0 [facility] Comment on above: Performed By: #### L 5500.0550, L500.4050, L100.0100, L500.4100 #### [facility] [address] [place], [address] SHRIMP <0.10 Normal Class 0 [facility] Comment on above: Performed By: #### L 5500.0550, L500.4050, L100.0100, L500.4100 #### [facility] [address] [place], [address] SOYBEAN <0.10 Normal Class 0 [facility] Comment on above: Performed By: #### L 5500.0550, L500.4050, L100.0100, L500.4100 #### [facility] Laboratory [address] [place], [address] TUNA <0.10 Normal Class 0 [facility] Comment on above: Performed By: #### L 5500.0550, L500.4050, L100.0100, L500.4100 #### [facility] [address] [place], [address] WHEAT <0.10 Normal Class 0 [facility] Comment on above: Performed By: #### L 5500.0550, L500.4050, L100.0100, L500.4100 #### [facility] [address] [place], [address] CBC W/Diff, Automatedon 01-0 2-2024 Absolute Lymph 2.05 X10 3/uL Normal 0.83-4.51 [facility] Comment on above: Performed By: #### L 5500.0550, L500.4050, L100.0100, L500.4100 #### [facility] [address] [place], [address] Absolute Neut 3.4 X10 3/uL Normal 2.0-7.7 [facility] Comment on above: Performed By: #### L 5500.0550, L500.4050, L100.0100, L500.4100 #### [facility] [address] [place], [address] Basophils/100 WBC (Bld) 0.5 % Normal 0-1 [facility] Comment on above: Performed By: #### L 5500.0550, L500.4050, L100.0100, L500.4100 #### [facility] [address] [place], [address] Eosinophils/100 WBC (Bld) 4.0 % Normal 0-5 [facility] Comment on above: Performed By: #### L 5500.0550, L500.4050, L100.0100, L500.4100 #### [facility] [address] [place], [address] Erythrocyte distribution width (RBC) [Ratio] 14.6 % Normal 11.6-14.6 [facility] Comment on above: Performed By: #### L 5500.0550, L500.4050, L100.0100, L500.4100 #### [facility] [address] [place], [address] Hematocrit (Bld) [Volume fraction] 36.9 % Low 37-47 [facility] Comment on above: Performed By: #### L 5500.0550, L500.4050, L100.0100, L500.4100 #### [facility] [address] [place], [address] Hemoglobin (Bld) [Mass/Vol] 11.5 g/dL Low 12.0-15. 0 [facility] Comment on above: Performed By: #### L 5500.0550, L500.4050, L100.0100, L500.4100 #### [facility] [address] [place], [address] IG% 0.300 Normal 0.0-0.9 [facility] Comment on above: Result Comment: IG% - Immature Granulocytes (promyelocytes, myelocytes and metamyelocytes) > 1% indicates that a LEFT SHIFT is Present. Performed By: #### L 5500.0550, L500.4050, L100.0100, L500.4100 #### [facility] [address] [place], [address] Lymphocytes/100 WBC (Bld) 32.7 % Normal 19-41 [facility] Comment on above: Performed By: #### L 5500.0550, L500.4050, L100.0100, L500.4100 #### [facility] [address] [place], [address] MCH (RBC) [Entitic mass] 25.1 pg Low 27.0-32.0 [facility] Comment on above: Performed By: #### L 5500.0550, L500.4050, L100.0100, L500.4100 #### [facility] [address] [place], [address] MCHC (RBC) [Mass/Vol] 31.2 g/dL Low 32-36 [facility] Comment on above: Performed By: #### L 5500.0550, L500.4050, L100.0100, L500.4100 #### [facility] [address] [place], [address] MCV (RBC) [Entitic vol] 80.6 fL Low 81-99 [facility] Comment on above: Performed By: #### L 5500.0550, L500.4050, L100.0100, L500.4100 #### [facility] [address] [place], [address] Monocytes/100 WBC (Bld) 7.8 % Normal 0-10 [facility] Comment on above: Performed By: #### L 5500.0550, L500.4050, L100.0100, L500.4100 #### [facility] [address] [place], [address] Neutrophils/100 WBC (Bld) 54.7 % Normal 47-70 [facility] Comment on above: Performed By: #### L 5500.0550, L500.4050, L100.0100, L500.4100 #### [facility] [address] [place], [address] Nucleated RBC (Bld) [#/Vol] 0 10*3/uL Normal 0-5 [facility] Comment on above: Performed By: #### L 5500.0550, L500.4050, L100.0100, L500.4100 #### [facility] [address] [place], [address] Platelet mean volume (Bld) [Entitic vol] 9.4 fL Normal 6.2-12.0 [facility] Comment on above: Performed By: #### L 5500.0550, L500.4050, L100.0100, L500.4100 #### [facility] [address] [place], [address] Platelets (Bld) [#/Vol] 569 10*3/uL High 150-450 [facility] Comment on above: Performed By: #### L 5500.0550, L500.4050, L100.0100, L500.4100 #### [facility] [address] [place], [address] RBC (Bld) [#/Vol] 4.58 10*6/uL Normal 4.2-5.4 [facility] Comment on above: Performed By: #### L 5500.0550, L500.4050, L100.0100, L500.4100 #### [facility] [address] [place], [address] RDW SD 42.7 fl Normal 35.1-43.9 [facility] Comment on above: Performed By: #### L 5500.0550, L500.4050, L100.0100, L500.4100 #### [facility] [address] [place], [address] WBC (Bld) [#/Vol] 6.3 10*3/uL Normal 4.4-11.0 [facility] Comment on above: Performed By: #### L 5500.0550, L500.4050, L100.0100, L500.4100 #### [facility] [address] [place], [address] [facility] Albumin [Mass/Vol] 3.1 g/dL Low 3.2-5.0 [facility] Comment on above: Performed By: #### L 5500.0550, L500.4050, L100.0100, L500.4100 #### [facility] [address] [place], [address] Albumin/Globulin [Mass ratio] 0.7 {ratio} Low 0.9-2.4 [facility] Comment on above: Performed By: #### L 5500.0550, L500.4050, L100.0100, L500.4100 #### [facility] [address] [place], [address] ALK P 90 U/L Normal 45-117 [facility] Comment on above: Performed By: #### L 5500.0550, L500.4050, L100.0100, L500.4100 #### [facility] [address] [place], [address] ALT [Catalytic activity/Vol] 24 U/L Normal 13-56 [facility] Comment on above: Performed By: #### L 5500.0550, L500.4050, L100.0100, L500.4100 #### [facility] [address] [place], [address] AST [Catalytic activity/Vol] 15 U/L Normal 15-37 [facility] Comment on above: Performed By: #### L 5500.0550, L500.4050, L100.0100, L500.4100 #### [facility] [address] [place], [address] Bilirubin [Mass/Vol] 0.30 mg/dL Normal 0.20-1.00 [facility] Comment on above: Result Comment: For patients on eltrombopag therapy, use of Dimension [place] TBIL is not recommended. Performed By: #### L 5500.0550, L500.4050, L100.0100, L500.4100 #### [facility] [address] [place], [address] BUN/CRE 18.3 RATIO Normal 10-20 [facility] Comment on above: Performed By: #### L 5500.0550, L500.4050, L100.0100, L500.4100 #### [facility] [address] [place], [address] CA,Total 8.9 mg/dL Normal 8.5-10.1 [facility] Comment on above: Performed By: #### L 5500.0550, L500.4050, L100.0100, L500.4100 #### [facility] [address] [place], [address] Chloride [Moles/Vol] 109 mmol/L High 98-107 [facility] Comment on above: Performed By: #### L 5500.0550, L500.4050, L100.0100, L500.4100 #### [facility] [address] [place], [address] CO2 [Moles/Vol] 22.0 mmol/L Normal 21.0-32.0 [facility] Comment on above: Performed By: #### L 5500.0550, L500.4050, L100.0100, L500.4100 #### [facility] [address] [place], [address] Creatinine [Mass/Vol] 0.60 mg/dL Normal 0.55-1.02 [facility] Comment on above: Result Comment: The validity of the calculated GFR GFRAA in patients over 70 years has not been determined. Clinical correlation is essential. Performed By: #### L 5500.0550, L500.4050, L100.0100, L500.4100 #### [facility] [address] [place], [address] EST GFR - AA 146 mL/min Normal >60 [facility] Comment on above: Result Comment: Afri can Libyan GFR Calc Performed By: #### L 5500.0550, L500.4050, L100.0100, L500.4100 #### [facility] [address] [place], [address] GAP 6 Normal 5-15 [facility] Comment on above: Performed By: #### L 5500.0550, L500.4050, L100.0100, L500.4100 #### [facility] [address] [place], [address] GFR/1.73 sq M.predicted among non-blacks MDRD (S/P/Bld) [Vol rate/Area] 121 mL/min/{1.73_m2} Normal >60 [facility] Comment on above: Result Comment: Non- GFR Calc Performed By: #### L 5500.0550, L500.4050, L100.0100, L500.4100 #### [facility] [address] [place], [address] Globulin (S) [Mass/Vol] 4.3 g/dL High 2.2-4.2 [facility] Comment on above: Performed By: #### L 5500.0550, L500.4050, L100.0100, L500.4100 #### [facility] [address] [place], [address] Glucose [Mass/Vol] 95 mg/dL Normal 74-106 [facility] Comment on above: Performed By: #### L 5500.0550, L500.4050, L100.0100, L500.4100 #### [facility] [address] [place], [address] Potassium [Moles/Vol] 4.0 mmol/L Normal 3.5-5.1 [facility] Comment on above: Performed By: #### L 5500.0550, L500.4050, L100.0100, L500.4100 #### [facility] [address] [place], [address] Sodium [Moles/Vol] 137 mmol/L Normal 136-145 [facility] Comment on above: Performed By: #### L 5500.0550, L500.4050, L100.0100, L500.4100 #### [facility] [address] [place], [address] T PROT 7.4 g/dL Normal 6.4-8.2 [facility] Comment on above: Performed By: #### L 5500.0550, L500.4050, L100.0100, L500.4100 #### [facility] [address] [place], [address] Urea nitrogen [Mass/Vol] 11 mg/dL Normal 7-18 [facility] Comment on above: Performed By: #### L 5500.0550, L500.4050, L100.0100, L500.4100 #### [facility] [address] [place], [address] Lipid Profileon 11-26-2024 Cholesterol [Mass/Vol] 240 mg/dL High 200 [facility] Comment on above: Result Comment: <200 mg/dL Desirable 200-240 mg/dL Borderline >240 mg/dL High Risk Performed By: #### L 5500.0550, L500.4050, L100.0100, L500.4100 #### [facility] [address] [place], [address] Cholesterol in HDL [Mass/Vol] 59 mg/dL Normal [facility] Comment on above: Result Comment: The drugs N-Acetylcysteine and Metamizole may falsely depress this assay. Reference Range HDL <40 mg/dL Low HDL Cholesterol HDL >or= 60 mg/dL High HDL Cholesterol Performed By: #### L 5500.0550, L500.4050, L100.0100, L500.4100 #### [facility] [address] [place], [address] Cholesterol in LDL [Mass/Vol] 133 mg/dL High 0-130 [facility] Comment on above: Performed By: #### L 5500.0550, L500.4050, L100.0100, L500.4100 #### [facility] [address] [place], [address] Cholesterol in VLDL [Mass/Vol] 48 mg/dL High 5-40 [facility] Comment on above: Performed By: #### L 5500.0550, L500.4050, L100.0100, L500.4100 #### [facility] [address] [place], [address] Triglyceride [Mass/Vol] 239 mg/dL High [facility] Comment on above: Result Comment: The drugs N-Acetylcysteine and Metamizole may falsely depress this assay. Serum Triglycerides Reference Interval Normal <150 mg/dL Borderline high 150 - 199 mg/dL High 200 - 499 mg/dL Very High > or = 500 mg/dL Performed By: #### L 5500.0550, L500.4050, L100.0100, L500.4100 #### [facility] [address] [place], [address] Internal Medicine Office Vis adela 11-11-2024 Internal Medicine Office Visit [facility] [address] [place], [place] [address] OFFICE VISIT Date of Service: 11/12/24 MR#: [id number] Acct: [id number] Name: MILADYS DIETZ Rep #: [id number] : 1990 Provider: Dr. 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 She was seeing a provider in [place], but hasn't been seen in 5-6 years. [...] or vomitin (more content not included)... Normal [facility] SCRN MAMM (CAD)W/FABIOLA BILATo n 08-31-2024 SCRN MAMM (CAD)W/FABIOLA BILAT [facility] Imaging Services [address] [place] [address] SCRN MAMM (CAD)W/FABIOLA BILAT MR#: [id number] Acct: [id number] Name: MILADYS DIETZ Rep #: [id number] : 1990 F 34 From: Benjamin bazan MD PCP: Care Physician,No Primary Status: REG [facility] Study: SCRN MAMM (CAD)W/FABIOLA BILAT Date of Exam: 06/17 Exam# [id number] Ordering Dr: Gabriella Parada NP ART PREPARATOR -C [id number] MAMMOGRAPHY - BILATERAL SCREENING REASON FOR EXAM: [...] delay biopsy of a clinically suspicious abnormality. [id number] Electronically Signed: Benjamin Ye MD at 9:25 EDT , CC: WHIT Parada; No Primary Care Physician Bracelet Form Coverer: Signed Normal [facility] XR Injection Hysterosalpingo graphyon 05-18-2021 XR Injection Hysterosalpingography Fluoro Time Indication: Infertility 3.0 minutes of fluoro was provided to Dr. Chicas. Read by: FRANCIS ALBARRAN MD Approved by: FRANCIS ALBARRAN MD Date: 05/18/2021 8:45 AM [facility] Vital Signs Date Time Vital Sign Value Performing Clinician Facility 07-29-2025 09:05-0400 Body height 172.[address] Inga Hong MD Work Phone: [facility] 07-29-2025 09:05-0400 Body mass index (BMI) [Ratio] 26.7 kg/m2 Dr. Inga Hong MD Work Phone: [facility] 07-29-2025 09:05-0400 Body temperature 97.1 [degF] Dr. Inga Hong MD Work Phone: [facility] 07-29-2025 09:05-0400 Body weight 79.[address] Inga Hong MD Work Phone: [facility] 07-29-2025 09:05-0400 Diastolic blood pressure 70 mm[Hg] Dr. Inga Hong MD Work Phone: [facility] 07-29-2025 09:05-0400 Heart rate 90 /min Dr. Inga Hong MD Work Phone: [facility] 07-29-2025 09:05-0400 Respiratory rate 14 /min Dr. Inga Hong MD Work Phone: [facility] 07-29-2025 09:05-0400 SaO2% (BldA) [Mass fraction] 98 % Dr. Inga Hong MD Work Phone: [facility] 07-29-2025 09:05-0400 Systolic blood pressure 122 mm[Hg] Dr. Inga Hong MD Work Phone: [facility] 07-20-2023 10:23-0400 Body height 172.7 cm No Pcp Required [facility] 07-20-2023 10:23-0400 Body temperature 97.88 [degF] No Pcp Required [facility] 07-20-2023 10:23-0400 Diastolic blood pressure 94 mm[Hg] No Pcp Required [facility] 07-20-2023 10:23-0400 Heart rate 88 /min No Pcp Required [facility] 07-20-2023 10:23-0400 Respiratory rate 14 /min No Pcp Required [facility] 07-20-2023 10:23-0400 SaO2% (BldA) [Mass fraction] 98 % No Pcp Required [facility] 07-20-2023 10:23-0400 Systolic blood pressure 134 mm[Hg] No Pcp Required [facility] 06-05-2022 11:48-0400 Body height 172.72 cm No Primary Care Physician [facility] Work Phone: 06-05-2022 11:48-0400 Body mass index (BMI) [Ratio] 24.2 kg/m2 No Primary Care Physician [facility] Work Phone: 06-05-2022 11:48-0400 Body weight 72.34 kg No Primary Care Physician [facility] Work Phone: 06-05-2022 11:48-0400 Diastolic blood pressure 70 mm[Hg] No Primary Care Physician [facility] Work Phone: 06-05-2022 11:48-0400 Systolic blood pressure 118 mm[Hg] No Primary Care Physician [facility] Work Phone: Encounters Encounter Date Encounter Type Care Provider Facility Start: 07-29-2025 End: 07-29-[address] Inga Hong MD -[facility] Work Phone: Start: 07-29-2025 End: 07-29-[address] Inga Hong MD Work Phone: -[facility] Start: 07-24-2025 End: 07-24-[address] Inga Hong MD Work Phone: -Laboratory Start: 07-24-2025 End: 07-24-[address] Inga Hong MD -Laboratory Work Phone: Start: 07-24-2025 End: 07-24-2025 ambulatory Inga Hong Facility:[facility] Start: 01-22-2025 Encounter for other preprocedural examination [facility] Start: 01-11-2025 End: 01-11-2025 ambulatory Inga Hong Facility:[facility] Start: 12-07-2024 End: 12-07-2024 ambulatory [facility] Facility:[facility] Start: 11-26-2024 End: 11-26-2024 ambulatory Inga Henriquezlay Facility:[facility] Start: 11-12-2024 End: 11-12-2024 ambulatory No Primary Care Physician Facility:[facility] Start: 08-31-2024 End: 08-31-2024 ambulatory No Primary Care Physician Facility:[facility] Start: 07-20-2023 End: 07-20-2023 Emergency department patient visit [facility] Start: 06-05-2022 End: 06-05-2022 Patient encounter procedure No Primary Care Physician [facility]-Laboratory, Specimen Start: 06-05-2022 End: 06-05-2022 Patient encounter procedure No Primary Care Physician [facility] Start: 05-18-2021 End: 05-18-2021 ambulatory [facility] Plan of Treatment Date Care Activity Detail Author Start: 07-12-2022 Liquid based cervica l cytology screening [facility] Work Phone: Path report.final Dx Spec [facility] Work Phone: Immunizations Immunization Date Immunization Notes Care Provider Fa cility 11-12-2024 influenza, injectabl e, madin ricky canine kidney, preservative free Dr. Inga Hong MD Work Phone: [facility] 11-12-2024 Influenza, injectabl e, Madin [place] Canine Kidney, preservative free, quadrivalent Dr. Inga Hong MD Work Phone: [facility] 10-22-2023 tetanus toxoid, redu gisela diphtheria toxoid, and acellular pertussis vaccine, adsorbed Dr. Inga Hong MD Work Phone: [facility] 02-03-2021 Covid (Pfizer) Dr. Inga roland MD Work Phone: [facility] 01-13-2021 Covid (Pfizer) Dr. Inga roland MD Work Phone: [facility] Payers Date Payer Category Payer Unknown [id number] 2024 Self-pay [id number] 2024 Unknown [id number] 2024 Unknown [id number] 1960 Unknown [id number] Unknown [id number] Unknown [facility] Unknown [id number] Unknown [id number] Unknown [id number] Unknown [id number] Unknown [id number] Unknown [id number] Unknown [id number] Unknown [id number] Social History Date Type Detail Facility Start: 06-05-2022 Tobacco smoking stat [facility] System Work Phone: Start: 1990 Sex Assigned At Female [facility] Start: 01-11-2025 End: 07-29-2025 Tobacco smoking status NHIS Never smoked tobacco (finding) [facility] Clinical Note 01-11-2025 Note Date & Type Note Facility 01-11-[address] [facility] Medical Records Department [address] [place] [address] History Physical Exam 01/11/25 0719 MR#: [id number] Acct: [id number] Name: MILADYS DIETZ Rep #: [id number] : 1990 34 From: Madyson Rdz MD PCP: Dr. Inga Hong MD Status:[facility] Location: [place] [address] HPI - General General Date of Service: [...] but patient states there is no cancer. 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 [facility] Evaluation note Note Date & Type Note Facility Evaluation note Diagnosis Onset Date Dysmenorrhea acute Infertility acute Encounter for routine gyneco logical examination noneactive [facility] Work Phone: Evaluation note Note Date & Type Note Facility Evaluation note No assessment information availa ble [facility] Work Phone: Evaluation note Note Date & Type Note Facility Evaluation note Diagnosis Onset Date Resolution Dysmenorrhea acute July 8:58am Seasonal allergies noneactive Sept2024 8:58am Anal fissure noneactive July 8:58am [facility] Work Phone: Reason for referral (narrative) Note Date & Type Note Facility Reason for referral (narrative) No reason for referral information available [facility] Work Phone: Summary Purpose Family History No Family History Records Found Relationship Condition Age at Onset Recorded Date/T rain aunt Malignant neoplasm of breast Unknown Malignant neoplasm of esophagus Unknown grandfather Diabetes mellitus Unknown Relationship Condition Age at Onset Recorded Date/T rain aunt Malignant neoplasm of breast Unknown Malignant neoplasm of esophagus Unknown grandfather Diabetes mellitus Unknown grandmother Arthritis Unknown grandfather Heart disease Unknown mother Anxiety Unknown sister Allergy to gluten Unknown Advance Directives No Advanced Directives Records FoundNo Advanced Directives Records Found Chief Complaint and Reason for Visit 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) Reason for Visit Dysmenorrhea Infertility Encounter for routine gynecological examination Chief Complaint Admit Date E ORDER July 24, 2025 9: 49am Chief Complaint Admit Date E ORDER July 24, 2025 9: 49am ADOPTION FITNESS APPOINTMENT July 292024 8:58am Reason for Visit Admit Date Dysmenorrhea July 29, 2025 8:58am Seasonal allergies July 29, 2025 8:58am Anal fissure July 29, 2025 8:58am Additional Source Comments INFORMATION SOURCE (unrecogn ized section and content) DATE CREATED AUTHOR 05/31/2021 [facility] DATE CREATED AUTHOR AUTHOR'S ORGANIZ ATION 07/30/2025 [facility] Goals (unrecognized section and content) Goals may be documented in a n alternate sectionGoals may be documented in an alternate sectionGoals may be documented in an alternate section <item> Privacy Markings (unrecogniz ed section and content) Section Author: Lis Burden PROHIBITION ON REDISCLOSURE OF CONFIDENTIAL INFORMATION This notice accompanies a disclosure of information concerning a client made to you with the consent of such client. Care Teams (unrecognized sec tion and content) Team Status: Active Member Role/Relationship Status Dates Dr. Inga Hong MD Primary Care Provider Active Team Status: Inactive Member Role/Relationship Status Dates Dr. Inga Hong MD Primary Care Provider Active Start: July 24, 2025 End: July 24, 2025 Dr. Inga Hong MD Attending Provider Active Start: July 24, 2025 End: July 24, 2025 Dr. Inga Hong MD Referring Provider Active Start: July 24, 2025 End: July 24, 2025 Team Status: Inactive Member Role/Relationship Status Dates Dr. Inga Hong MD Primary Care Provider Active Start: July 29, 2025 End: July 29, 2025 Dr. Inga Hong MD Attending Provider Active Start: July 29, 2025 End: July 29, 2025 Dr. Inga Hong MD Referring Provider Active Start: July 29, 2025 End: July 29, 2025 FOR RECORDS PERTAINING TO PATIENTS WHO ARE [...] BE BASED ON THE PRIMARY CLINICAL RECORDS. [facility] [employer] provides no warranty or guarantee of the accuracy or completeness of information in this document.
[2025-07-31 12:33] LABS: Ferritin 6 ng/mL (22-378); Iron 22 ug/dL (50-170); Iron Binding Capacity,Total 430 ug/dL (250-450); Iron Binding Capacity,Unsat 408 ug/dL (228-428)
== END | disposition home or self-care (01) ==
PROVIDERS: PCP Internal Medicine; Referring Provider Internal Medicine; Visit Provider Internal Medicine
DX: D64.9 Anemia, unspecified (principal)
CPT/HCPCS: 36415; 82728; 83540; 83550

== ENCOUNTER → 2025-11-06 | Outpatient (CLI) | payer SELFPAY ==
--- OUTSIDE RECORDS SUMMARY | 2025-11-06 11:12 | XMS RPT_ITS | CCD ---
Author Organization [facility] CliniSyct Care Team Providers Care Associate Producer Name Role Phone BARRY CHICAS Attending Unavailable BARRY CHICAS Admitting Unavailable AA NO PCP, NO PCP Primary Care Unavailable Care Physician, No Primary Primary Care Provider Unavailable Care Physician, No Primary Referring Provider Un available Tal EMERGENCY MEDICAL SERVICE MANAGER, JAMES-C Gabriella Attending Provider Required, No Pcp Unavailable Unavailable Markie Kaur Unavailable Gely LUJAN, Dr. Xiong Primary Care Provider [phone] Gely LUJAN, Dr. Xiong Attending Provider Gely LUJAN, Dr. Xiong Referring Provider [place], Inga Primary Care Unavailable Robotham, Madyson Attending Unavailable Care Physician, No Primary Referring Unava ilable [place], Inga Referring Unavailable [place], Inga Primary Care Unavailable Robotham, Madyson Attending Unavailable [place], Inga Attending Unavailable [place], Inga Referring Unavailable Gely, Inga Primary Care Unavailable Tal EMERGENCY MEDICAL SERVICE MANAGERGabriella Attending Unavailable Tal EMERGENCY MEDICAL SERVICE MANAGERGabriella Referring Unavailable Care Physician, No Primary Primary Care Unava ilable Gely, Inga Attending Unavailable [place], Inga Referring Unavailable Gely, Inga Primary Care Unavailable [place], Inga Referring Unavailable [place], Inga Primary Care Unavailable Robotham, Madyson Consulting Unavailable Robotham, Madyson Attending Unavailable Gely, Inga Referring Unavailable Gely, Inga Primary Care Unavailable Gely, Inga Attending Unavailable [place], Inga Attending Unavailable Gely, Inga Referring Unavailable [place], Inga Primary Care Unavailable Care Physician, No Primary Referring Unava ilable [place], Inga Attending Unavailable Care Physician, No Primary Primary Care Unava ilable Allergies Allergy Classification Reported Allergen(s) Allergy Type Date of Onset Reaction(s) Facility nickel (1 source) nickel; Translations: [Nickel] Drug Allergy [facility] Repository Penicillins (antibiotic) (1 source) Amoxicillin Drug Allergy [facility] Repository (5 sources) Amoxicillin Drug Allergy 06-05-2022 hives [facility] Work Phone: (3 sources) nickel Drug Allergy 01-11-2025 Rash [facility] (1 source) Amoxicillin Drug Allergy 07-29-2025 [facility] Repository (1 source) nickel Drug Allergy 07-29-2025 [facility] Repository Medications Current Medications Medication Drug Class(es) Dates Sig (Normalized) Sig (Original) cetirizine hydrochloride 10 mg oral capsule (3 sources) Histamine-1 Receptor Antagonist Start: 06-19-2023 take 1 capsule by mouth once daily as needed Cetirizine (Zyrtec) 10 mg capsule Active 10 mg PO DAILY as needed for allergy symptoms June 19, 2023 12:00am Norgestimate-Ethinyl Estradiol (11 sources) Progestin, Estrogen Start: 06-22-2024 take 1 [...] tablet Discontinued 1 {tbl} PO daily 84 4 June 05, 2022 12:00am August 01, 2023 8:01am Start: 06-05-2022 take 1 tablet by leonor once daily Norgestimate-Ethinyl Estradiol (Sprintec (28)) 0.25-35 mg-mcg tablet Active 1 TABLET PO daily June 05, 2022 12:00am Sprintec Quantit y: 0 Refills: 0 Ordered: 20-Jul-2023 Rashad Arreola Generic Substitution Allowed fluticasone propionate 0.05 mg/actuat metered dose nasal spray (3 sources) Corticosteroid Start: 06-19-2023 take 50 ug nasal route once daily Fluticasone Propionate (Flonase Allergy Relief) 50 mcg/actuation spray,suspension Active 1 NMA INTRANASAL DAILY June 19, 2023 12:00am administer into each nostril Inulin (2 sources) Start: 07-29-2025 take 1 tablet by mouth once daily Inulin (Fiber Gummies) 1.7 gram tablet,chewable Active 1.7 g PO daily July 29, 2025 12:00am Multivitamin preparation (1 source) Start: 06-05-2022 take 1 tablet by mouth once daily Multivitamin Active 1 TABLET PO DAILY June 05, 2022 12:00am Multivitamin tablet (3 sources) Start: 06-05-2022 Multivitamin t ablet Active 1 {tbl} PO DAILY June 05, 2022 12:00am psyllium 400 mg oral capsule (3 sources) Start: 11-12-2024 Psyllium Husk (Metamucil) 0.4 gram capsule Active 0.4 g PO DAILY November 12, 2024 1:00am Completed/Discontinued Medications Medication Drug Class(es) Dates Sig (Normalized) Sig (Original) Diltiazem 10mg/Lidocaine 50mg Suppository 30 supp suppository (6 sources) Start: 01-07-2025 End: 07-29-2025 Diltiazem 10mg/Lidocaine [...] weeks saccharomyces boulardii 250 mg oral capsule (3 sources) Start: 06-19-2023 End: 11-12-2024 take 1 capsule by mouth twice daily Saccharomyces Boulardii (Daily Probiotic (S. Boulardii)) 250 mg capsule Discontinued 250 mg PO TWICE A DAY June 19, 2023 12:00am November 12, 2024 11:21am Problems Active Problems Problem Classification Problem Date Documented Da te Episodic/Chronic Administrative/social admission (2 sources) Patient encounter status; Translations: [Encounter for adoption services] 07-29-2025 Episodic Contraceptive and procreative management (2 sources) Encounter for fertility testing; Translations: [ENCOUNTER FOR FERTILITY TESTING] Onset: Episodic Deficiency and other anemia (1 source) Iron deficiency anemia; Translations: [Iron deficiency anemia, unspecified] 07-29-2025 Episodic Deficiency and other anemia (1 source) Anemia, unspecified; Translations: [Anemia, unspecified] Onset: 5 Episodic Gastrointestinal hemorrhage (5 sources) Gastrointestinal hemorrhage; Translations: [Hemorrhage of anus and rectum] Onset: 5 12-09-2024 Episodic Hemorrhoids (3 sources) Hemorrhoids; Translations: [Unspecified hemorrhoids] 12-07-2024 Episodic Menstrual disorders (7 sources) Dysmenorrhea; Translations: [Dysmenorrhea, unspecified] Chronic Comment on above: controlled with OCP Other upper respiratory disease (2 sources) Seasonal allergy; Translations: [Other seasonal allergic rhinitis] 07-29-2025 Chronic Residual codes; unclassified (3 sources) Family history of breast cancer; Translations: [Family history of malignant neoplasm of breast] 06-22-2024 Episodic Comment on above: aunt Residual codes; unclassified (3 sources) Infertile 06-19-2023 Episodic Comment on above: Saw RGI: with low sperm, declined IVF. Pursuing adoption/[employer]. Unclassified (2 sources) Infertile; Translations: [Infertility] Past or Other Problems Problem Classification Problem Date Documented Da te Episodic/Chronic Anal and rectal conditions (10 sources) Rectal pain; Translations: [Anal fissure] Onset: [...] Test Name Value Interpretation Reference Range Facility Ferritinon 07-31-2025 Ferritin [Mass/Vol] 6 ng/mL Low 22-378 [facility] Comment on above: Performed By: #### L 503.6550, L503.6030 #### [facility] [address] [place], [place], [id number] Iron measurement (mass/mass) Ordered By: Inga Hong on 07-31-2025 Iron (Unsp spec) [Mass/Mass] 22 ug/dL Low 50-170 [facility] Iron+Iron Binding Capacityon 07-31-2025 Iron [Mass/Vol] 22 ug/dL Low 50-170 [facility] Comment on above: Performed By: #### L 503.6550, L503.6030 #### [facility] [address] [place], [place], [id number] IRON SATURATION 5.0 Low 13-59 [facility] Comment on above: Performed By: #### L 503.6550, L503.6030 #### [facility] [address] [place], [place], [id number] (690) TIBC 430 ug/dL Normal 250-450 [facility] Comment on above: Performed By: #### L 503.6550, L503.6030 #### [facility] [address] [place], [place], [address] UIBC 408 ug/dL Normal 228-428 [facility] Comment on above: Performed By: #### L 503.6550, L503.6030 #### [facility] [address] [place], [place], [address] No Panel InformationOrdered By: Inga Hong on 07-31-2025 Unsaturated Iron Binding Capacity 408 ug/dL 228-428 [facility] Serum or plasma ferritin patricia surement (mass/volume)Ordered By: Inga Hong on 07-31-2025 Ferritin [Mass/Vol] 6 ng/mL Low 22-378 [facility] Serum or plasma iron saturat ion measurement (mass fraction)Ordered By: Inga oHng on 07-31-2025 Iron saturation [Mass fraction] 5.0 % Low 13-59 [facility] Internal Medicine Office Vis iton 07-28-2025 Internal Medicine Office Visit [facility] [address] [place], [place] [address] OFFICE VISIT Date of Service: 07/29/25 MR#: [id number] Acct: [id number] Name: MILADYS DIETZ Rep #: [id number] : 1990 Provider: Dr. Inga reyna MD Age/Sex: 34/F Location: [facility] Status: Signed Intake Vital Signs 01/11/25 07:15 07/29/25 09:05 Height 5 ft 8 in 5 ft 8 in Weight: 176 lb BMI 26.7 BP 122/70 H Blood Pressure Location Lt brachial Position Sitting Respiration 14 Pulse 90 Pulse Source Monitor Temp 97.1 F L Temp Source Temporal Pulse Oximetry (%) 98 Oxygen Delivery Method room air Intake Visit Reasons: ADOPTION FITNESS APPOINTMENT Consultant Dietitian Required: No Accompanied by: Self Is patient [...] QDAY 07/29/25 07/29/25 Hi story (Fiber Gummies) PFSH Medical History Wears glasses Alcohol use High [...] 3-4 times per week duration: 15-30 minutes/day corbin/christian: yazdanism seatbelt use: always do you feel safe at home: Yes 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 HPI HPI Details: MILADYS BEAN, is a 34 F who presents to the office today for a follow up. She is up to date on her routine blood work. She is up to date on her screening. She isn't due for any immunizations. She do (more content not included)... Normal [facility] Absolute lymphocyte countOrd ered By: Inga Hong on 07-24-2025 Lymphocytes Auto (Unsp spec) [#/Vol] 2.19 10*3/uL 0.83-4.51 [facility] Absolute neutrophil countOrd ered By: Inga Gely on 07-24-2025 Neutrophils (Bld) [#/Vol] 4.6 10*3/uL 2.0-7.7 [facility] Automated lymphocyte count a s percentage of total leukocytesOrdered By: Inga [place] on 07-24-2025 Lymphocytes/100 WBC Auto (Unsp spec) 28.8 % 19-41 [facility] Basophil percentageOrdered B y: Inga Gely on 07-24-2025 Basophils/100 WBC (Bld) 0.4 % 0-1 [facility] CBC W/Diff, Automatedon 06-27 0-2024 Absolute Lymph 2.19 X10 3/uL Normal 0.83-4.51 [facility] Comment on above: Performed By: #### L 100.0100 ####[facility] [address] [place], [address] Absolute Neut 4.6 X10 3/uL Normal 2.0-7.7 [facility] Comment on above: Performed By: #### L 100.0100 ####[facility] [address] [place], [address] Basophils/100 WBC (Bld) 0.4 % Normal 0-1 [facility] Comment on above: Performed By: #### L 100.0100 ####[facility] [address] [place], [address] Eosinophils/100 WBC (Bld) 3.0 % Normal 0-5 [facility] Comment on above: Performed By: #### L 100.0100 ####[facility] [address] [place], [address] Erythrocyte distribution width (RBC) [Ratio] 15.1 % High 11.6-14.6 [facility] Comment on above: Performed By: #### L 100.0100 ####[facility] [address] [place], [address] Hematocrit (Bld) [Volume fraction] 35.0 % Low 37-47 [facility] Comment on above: Performed By: #### L 100.0100 ####[facility] [address] [place], [address] Hemoglobin (Bld) [Mass/Vol] 11.2 g/dL Low 12.0-15. 0 [facility] Comment on above: Performed By: #### L 100.0100 ####[facility] [address] [place], [address] IG% 0.000 Normal 0.0-0.9 [facility] Comment on above: Result Comment: IG% - Immature Granulocytes (promyelocytes, myelocytes and metamyelocytes) > 1% indicates that a LEFT SHIFT is Present. Performed By: #### L 100.0100 ####[facility] [address] [place], [address] Lymphocytes/100 WBC (Bld) 28.8 % Normal 19-41 [facility] Comment on above: Performed By: #### L 100.0100 ####[facility] [address] [place], [address] MCH (RBC) [Entitic mass] 25.2 pg Low 27.0-32.0 [facility] Comment on above: Performed By: #### L 100.0100 ####[facility] [address] [place], [address] MCHC (RBC) [Mass/Vol] 32.0 g/dL Normal 32-36 [facility] Comment on above: Performed By: #### L 100.0100 ####[facility] [address] [place], [address] MCV (RBC) [Entitic vol] 78.8 fL Low 81-99 [facility] Comment on above: Performed By: #### L 100.0100 ####[facility] [address] [place], [address] Monocytes/100 WBC (Bld) 7.4 % Normal 0-10 [facility] Comment on above: Performed By: #### L 100.0100 ####[facility] [address] [place], [address] Neutrophils/100 WBC (Bld) 60.4 % Normal 47-70 [facility] Comment on above: Performed By: #### L 100.0100 ####[facility] [address] [place], [address] Nucleated RBC (Bld) [#/Vol] 0 10*3/uL Normal 0-5 [facility] Comment on above: Performed By: #### L 100.0100 ####[facility] [address] [place], [address] Platelet mean volume (Bld) [Entitic vol] 9.2 fL Normal 6.2-12.0 [facility] Comment on above: Performed By: #### L 100.0100 ####[facility] [address] [place], [address] Platelets (Bld) [#/Vol] 597 10*3/uL High 150-450 [facility] Comment on above: Performed By: #### L 100.0100 ####[facility] [address] [place], [address] RBC (Bld) [#/Vol] 4.44 10*6/uL Normal 4.2-5.4 [facility] Comment on above: Performed By: #### L 100.0100 ####[facility] [address] [place], [address] RDW SD 43.3 fl Normal 35.1-43.9 [facility] Comment on above: Performed By: #### L 100.0100 ####[facility] [address] [place], [place], [address] WBC (Bld) [#/Vol] 7.6 10*3/uL Normal 4.4-11.0 [facility] [place] Comment on above: Performed By: #### L 100.0100 ####[facility] [address] [place], [place], [address] Eosinophil percentageOrdered By: Inga Hong on 07-24-2025 Eosinophils/100 WBC (Bld) 3.0 % 0-5 [facility] Erythrocyte distribution wid th ratioOrdered By: Inga Hong on 07-24-2025 Erythrocyte distribution width (RBC) [Ratio] 15.1 % High 11.6-14.6 [facility] Erythrocyte distribution wid th standard deviationOrdered By: Inga Hong on 07-24-2025 Erythrocyte distribution width (RBC) [Ratio] 43.3 fl 35.1-43.9 [facility] Hematocrit Auto (Bld) [Volum e fraction]Ordered By: Inga Hong on 07-24-2025 Hematocrit (Bld) [Volume fraction] 35.0 % Low 37-47 [facility] Hemoglobin measurementOrdere d By: Inga Hong on 07-24-2025 Hemoglobin (Bld) [Mass/Vol] 11.2 g/dL Low 12.0-15. 0 [facility] Immature granulocytes/100 WB C Auto (Bld)Ordered By: Inga Hong on 07-24-2025 Immature granulocytes/100 WBC (Bld) 0.000 % 0.0-0.9 [facility] Comment on above: IG% - Immature Granu locytes (promyelocytes, myelocytes and metamyelocytes) > 1% indicates that a LEFT SHIFT is Present. MCV (mean corpuscular volume ) determinationOrdered By: Inga Hong on 07-24-2025 MCV (RBC) [Entitic vol] 78.8 fL Low 81-99 [facility] Mean corpuscular hemoglobin (MCH) determinationOrdered By: Inga Hong on 07-24-2025 MCH (RBC) [Entitic mass] 25.2 pg Low 27.0-32.0 [facility] Mean corpuscular hemoglobin concentration (MCHC) determinationOrdered By: Inga Hong on 07-24-2025 MCHC (RBC) [Mass/Vol] 32.0 g/dL 32-36 [facility] Mean platelet volume determi nationOrdered By: Inga Hong on 07-24-2025 Platelet mean volume (Bld) [Entitic vol] 9.2 fL 6.2-12.0 [facility] Monocyte percentageOrdered B y: Inga Hong on 07-24-2025 Monocytes/100 WBC (Bld) 7.4 % 0-10 [facility] Neutrophil percentageOrdered By: Ingacecile Hong on 07-24-2025 Neutrophils/100 WBC (Bld) 60.4 % 47-70 [facility] Nucleated red blood cell per centageOrdered By: Inga Hong on 07-24-2025 Nucleated RBC/100 WBC (Bld) [Ratio] 0 % 0-5 [facility] Platelet countOrdered By: Al ycel Hong on 07-24-2025 Platelets (Bld) [#/Vol] 597 10*3/uL High 150-450 [facility] RBC Auto (Bld) [#/Vol]Ordere d By: Inga Hong on 07-24-2025 RBC (Bld) [#/Vol] 4.44 10*6/uL 4.2-5.4 [facility] White blood cell (WBC) count Ordered By: Inga Hong on 07-24-2025 WBC (Bld) [#/Vol] 7.6 10*3/uL 4.4-11.0 [facility] Colonoscopy Reporton 025 Colonoscopy Report [facility] Medical Records Department [address] [place] [address] Colonoscopy Report MR#: [id number] Acct: [id number] Name: MILADYS DIETZ Rep #: [id number] : 1990 34 From: Madyson Rdz MD PCP: Dr. Inga Hong MD Status:REG SDC Patient Name: Miladys Bean Procedure Date: 01/11/2025 [...] screening purposes. Procedure Code(s): --- Professional --- 07687, Colonoscopy, flexible; diagnostic, including collection of specimen(s) by brushing or washing, when performed (separate procedure) Diagnosis Code(s): --- Professional --- K60.2, Anal fissure, unspecified K62.5, Hemorrhage of anus and rectum CPT copyright 2021 [employer]. All rights reserved. The codes documented in this report are preliminary and upon glost tile sorter review may be revised to meet current compliance requirements. MD Madyson Pineda MD 01/11/2025 8:35:03 AM This report has been signed electronically. Number of Addenda: 0 Note Initiated On: 01/11/2025 8:05 AM 01/11/25834 Date Madyson Rzd MD Cosigner Signature: Date (if indicated) CC: Dr. Inga Hong MD; Dr. Madyson Rdz MD Date Dictated: 01/11/25804 Date Transcribed: Rn Circulating: ARCHIE Scruggs [facility] MR/POSTOP.[facility] 01-11-2025 MR/POSTOP.[facility] Medical Records Department [address] [place] [address] Anesthesia Postop Eval I 01/11/25839 MR#: [id number] Acct: [id number] Name: MILADYS DIETZ Rep #: [id number] : 1990 34 From: Francisco Javier Garcia PCP: Dr. Inga Hnog MD Status:REG [facility] Race: C Location: [place] [address] Anesthesia: Postop Eval I Current Vital Signs [...] Francisco Javier Polanco Signature: Date CC: Signed Normal [facility] MR/WTVSIBGO0mg 01-11-2025 MR/POSTOPAN2 [facility] Medical Records Department [address] [place] [address] Anesthesia Postop Eval II 01/11/25 0859 MR#: [id number] Acct: [id number] Name: MILADYS DIETZ Rep #: [id number] : 1990 34 From: Jesu Ross MD PCP: Dr. Inga Hong MD Status:REG [facility] Race: C Location: [place] [address] Anesthesia Postop Eval I Sum Postop Eval [...] Pain Level: 0 nausea: No Vomiting: No 01/11/2559 Jesu Polanco Signature: Date CC: Signed Normal [facility] ,Urineon 01-11-2025 Beta HCG ( test) Ql (U) Negative Normal [facility] Comment on above: Result Comment: Very dilute urine specimens, as indicated by a low specific gravity, may not contain member services representative levels of hCG. If is still suspected, a first morning urine specimen should be collected 48 hours later and tested. Performed By: #### L 400.7600 #### [facility] [address] [place], [address] Surgery Visit Reporton 12-07 Surgery Visit Report [facility] [address] [place] [address] OFFICE VISIT Date of Service: 12/07/24 MR#: [id number] Acct: [id number] Name: MILADYS DIETZ Rep #: [id number] : 1990 Provider: Dr. 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 Normal [facility] L5500.0550on 11-30-2024 BEEF <0.10 Normal Class 0 [facility] Comment on above: Performed By: #### L 500.4100, L5500.0550, L500.4050, L100.0100 #### [facility] [address] [place], [address] CHOCOLATE <0.10 Normal Class 0 [facility] Comment on above: Performed By: #### L 500.4100, L5500.0550, L500.4050, L100.0100 #### [facility] [address] [place], [address] CODFISH <0.10 Normal Class 0 [facility] Comment on above: Performed By: #### L 500.4100, L5500.0550, L500.4050, L100.0100 #### [facility] [address] [place], [address] COMMENT Comment Normal . [facility] Comment on above: Result Comment: She [place] of Specific IgE Class Description of Class ----- < 0.10 0 Negative 0.10 - 0.31 0/I Equivocal/Low 0.32 - 0.55 I Low 0.56 - 1.40 II Moderate 1.41 - 3.90 III High 3.91 - 19.00 IV Very High 19.01 - 100.00 V Very High >100.00 Very High Performed By: #### L 500.4100, L5500.0550, L500.4050, L100.0100 #### [facility] [address] [place], [address] CORN <0.10 Normal Class 0 [facility] Comment on above: Performed By: #### L 500.4100, L5500.0550, L500.4050, L100.0100 #### [facility] [address] [place], [address] EGG, WHOLE <0.10 Normal Class 0 [facility] Comment on above: Result Comment: Perf ormed at: [facility] [address] [id number] Warehouse Loader: Kymberly Holder MD, Phone: [phone] Performed By: #### L 500.4100, L5500.0550, L500.4050, L100.0100 #### [facility] [address] [place], [address] MILK (COW) <0.10 Normal Class 0 [facility] Comment on above: Performed By: #### L 500.4100, L5500.0550, L500.4050, L100.0100 #### [facility] [address] [place], [address] MUSSELS <0.10 Normal Class 0 [facility] Comment on above: Performed By: #### L 500.4100, L5500.0550, L500.4050, L100.0100 #### [facility] [address] [place], [address] PEANUT <0.10 Normal Class 0 [facility] Comment on above: Performed By: #### L 500.4100, L5500.0550, L500.4050, L100.0100 #### [facility] [address] [place], [address] PORK <0.10 Normal Class 0 [facility] Comment on above: Performed By: #### L 500.4100, L5500.0550, L500.4050, L100.0100 #### [facility] [address] [place], [address] SALMON <0.10 Normal Class 0 [facility] Comment on above: Performed By: #### L 500.4100, L5500.0550, L500.4050, L100.0100 #### [facility] [address] [place], [address] SHRIMP <0.10 Normal Class 0 [facility] Comment on above: Performed By: #### L 500.4100, L5500.0550, L500.4050, L100.0100 #### [facility] [address] [place], [address] SOYBEAN <0.10 Normal Class 0 [facility] Comment on above: Performed By: #### L 500.4100, L5500.0550, L500.4050, L100.0100 #### [facility] [address] [place], [address] TUNA <0.10 Normal Class 0 [facility] Comment on above: Performed By: #### L 500.4100, L5500.0550, L500.4050, L100.0100 #### [facility] [address] [place], [address] WHEAT <0.10 Normal Class 0 [facility] Comment on above: Performed By: #### L 500.4100, L5500.0550, L500.4050, L100.0100 #### [facility] [address] [place], [address] CBC W/Diff, Automatedon 01-0 2-2024 Absolute Lymph 2.05 X10 3/uL Normal 0.83-4.51 [facility] Comment on above: Performed By: #### L 500.4100, L5500.0550, L500.4050, L100.0100 #### [facility] [address] [place], [address] Absolute Neut 3.4 X10 3/uL Normal 2.0-7.7 [facility] Comment on above: Performed By: #### L 500.4100, L5500.0550, L500.4050, L100.0100 #### [facility] [address] [place], [address] Basophils/100 WBC (Bld) 0.5 % Normal 0-1 [facility] Comment on above: Performed By: #### L 500.4100, L5500.0550, L500.4050, L100.0100 #### [facility] [address] [place], [address] Eosinophils/100 WBC (Bld) 4.0 % Normal 0-5 [facility] Comment on above: Performed By: #### L 500.4100, L5500.0550, L500.4050, L100.0100 #### [facility] [address] [place], [address] Erythrocyte distribution width (RBC) [Ratio] 14.6 % Normal 11.6-14.6 [facility] Comment on above: Performed By: #### L 500.4100, L5500.0550, L500.4050, L100.0100 #### [facility] [address] [place], [address] Hematocrit (Bld) [Volume fraction] 36.9 % Low 37-47 [facility] Comment on above: Performed By: #### L 500.4100, L5500.0550, L500.4050, L100.0100 #### [facility] [address] [place], [address] Hemoglobin (Bld) [Mass/Vol] 11.5 g/dL Low 12.0-15. 0 [facility] Comment on above: Performed By: #### L 500.4100, L5500.0550, L500.4050, L100.0100 #### [facility] [address] [place], [address] IG% 0.300 Normal 0.0-0.9 [facility] Comment on above: Result Comment: IG% - Immature Granulocytes (promyelocytes, myelocytes and metamyelocytes) > 1% indicates that a LEFT SHIFT is Present. Performed By: #### L 500.4100, L5500.0550, L500.4050, L100.0100 #### [facility] [address] [place], [address] Lymphocytes/100 WBC (Bld) 32.7 % Normal 19-41 [facility] Comment on above: Performed By: #### L 500.4100, L5500.0550, L500.4050, L100.0100 #### [facility] [address] [place], [address] MCH (RBC) [Entitic mass] 25.1 pg Low 27.0-32.0 [facility] Comment on above: Performed By: #### L 500.4100, L5500.0550, L500.4050, L100.0100 #### [facility] [address] [place], [address] MCHC (RBC) [Mass/Vol] 31.2 g/dL Low 32-36 [facility] Comment on above: Performed By: #### L 500.4100, L5500.0550, L500.4050, L100.0100 #### [facility] [address] [place], [address] MCV (RBC) [Entitic vol] 80.6 fL Low 81-99 [facility] Comment on above: Performed By: #### L 500.4100, L5500.0550, L500.4050, L100.0100 #### [facility] [address] [place], [address] Monocytes/100 WBC (Bld) 7.8 % Normal 0-10 [facility] Comment on above: Performed By: #### L 500.4100, L5500.0550, L500.4050, L100.0100 #### [facility] [address] [place], [address] Neutrophils/100 WBC (Bld) 54.7 % Normal 47-70 [facility] Comment on above: Performed By: #### L 500.4100, L5500.0550, L500.4050, L100.0100 #### [facility] [address] [place], [address] Nucleated RBC (Bld) [#/Vol] 0 10*3/uL Normal 0-5 [facility] Comment on above: Performed By: #### L 500.4100, L5500.0550, L500.4050, L100.0100 #### [facility] [address] [place], [address] Platelet mean volume (Bld) [Entitic vol] 9.4 fL Normal 6.2-12.0 [facility] Comment on above: Performed By: #### L 500.4100, L5500.0550, L500.4050, L100.0100 #### [facility] [address] [place], [address] Platelets (Bld) [#/Vol] 569 10*3/uL High 150-450 [facility] Comment on above: Performed By: #### L 500.4100, L5500.0550, L500.4050, L100.0100 #### [facility] [address] [place], [address] RBC (Bld) [#/Vol] 4.58 10*6/uL Normal 4.2-5.4 [facility] Comment on above: Performed By: #### L 500.4100, L5500.0550, L500.4050, L100.0100 #### [facility] [address] [place], [address] RDW SD 42.7 fl Normal 35.1-43.9 [facility] Comment on above: Performed By: #### L 500.4100, L5500.0550, L500.4050, L100.0100 #### [facility] [address] [place], [address] WBC (Bld) [#/Vol] 6.3 10*3/uL Normal 4.4-11.0 [facility] Comment on above: Performed By: #### L 500.4100, L5500.0550, L500.4050, L100.0100 #### [facility] [address] [place], [address] Comprehensive Metabolic Prof ilon 11-26-2024 Albumin [Mass/Vol] 3.1 g/dL Low 3.2-5.0 [facility] Comment on above: Performed By: #### L 500.4100, L5500.0550, L500.4050, L100.0100 #### [facility] [address] [place], [address] Albumin/Globulin [Mass ratio] 0.7 {ratio} Low 0.9-2.4 [facility] Comment on above: Performed By: #### L 500.4100, L5500.0550, L500.4050, L100.0100 #### [facility] [address] [place], [address] ALK P 90 U/L Normal 45-117 [facility] Comment on above: Performed By: #### L 500.4100, L5500.0550, L500.4050, L100.0100 #### [facility] [address] [place], [address] ALT [Catalytic activity/Vol] 24 U/L Normal 13-56 [facility] Comment on above: Performed By: #### L 500.4100, L5500.0550, L500.4050, L100.0100 #### [facility] [address] [place], [address] AST [Catalytic activity/Vol] 15 U/L Normal 15-37 [facility] Comment on above: Performed By: #### L 500.4100, L5500.0550, L500.4050, L100.0100 #### [facility] [address] [place], [address] Bilirubin [Mass/Vol] 0.30 mg/dL Normal 0.20-1.00 [facility] Comment on above: Result Comment: For patients on eltrombopag therapy, use of Dimension [place] TBIL is not recommended. Performed By: #### L 500.4100, L5500.0550, L500.4050, L100.0100 #### [facility] [address] [place], [address] BUN/CRE 18.3 RATIO Normal 10-20 [facility] Comment on above: Performed By: #### L 500.4100, L5500.0550, L500.4050, L100.0100 #### [facility] [address] [place], [address] CA,Total 8.9 mg/dL Normal 8.5-10.1 [facility] Comment on above: Performed By: #### L 500.4100, L5500.0550, L500.4050, L100.0100 #### [facility] [address] [place], [address] Chloride [Moles/Vol] 109 mmol/L High 98-107 [facility] Comment on above: Performed By: #### L 500.4100, L5500.0550, L500.4050, L100.0100 #### [facility] [address] [place], [address] CO2 [Moles/Vol] 22.0 mmol/L Normal 21.0-32.0 [facility] Comment on above: Performed By: #### L 500.4100, L5500.0550, L500.4050, L100.0100 #### [facility] [address] [place], [address] Creatinine [Mass/Vol] 0.60 mg/dL Normal 0.55-1.02 [facility] Comment on above: Result Comment: The validity of the calculated GFR GFRAA in patients over 70 years has not been determined. Clinical correlation is essential. Performed By: #### L 500.4100, L5500.0550, L500.4050, L100.0100 #### [facility] [address] [place], [address] EST GFR - AA 146 mL/min Normal >60 [facility] Comment on above: Result Comment: Afri can [place] Island[place] GFR Calc Performed By: #### L 500.4100, L5500.0550, L500.4050, L100.0100 #### [facility] [address] [place], [address] GAP 6 Normal 5-15 [facility] Comment on above: Performed By: #### L 500.4100, L5500.0550, L500.4050, L100.0100 #### [facility] [address] [place], [address] GFR/1.73 sq M.predicted among non-blacks MDRD (S/P/Bld) [Vol rate/Area] 121 mL/min/{1.73_m2} Normal >60 [facility] Comment on above: Result Comment: Non- GFR Calc Performed By: #### L 500.4100, L5500.0550, L500.4050, L100.0100 #### [facility] [address] [place], [address] Globulin (S) [Mass/Vol] 4.3 g/dL High 2.2-4.2 [facility] Comment on above: Performed By: #### L 500.4100, L5500.0550, L500.4050, L100.0100 #### [facility] [address] [place], [address] Glucose [Mass/Vol] 95 mg/dL Normal 74-106 [facility] Comment on above: Performed By: #### L 500.4100, L5500.0550, L500.4050, L100.0100 #### [facility] [address] [place], [address] Potassium [Moles/Vol] 4.0 mmol/L Normal 3.5-5.1 [facility] Comment on above: Performed By: #### L 500.4100, L5500.0550, L500.4050, L100.0100 #### [facility] [address] [place], [address] Sodium [Moles/Vol] 137 mmol/L Normal 136-145 [facility] Comment on above: Performed By: #### L 500.4100, L5500.0550, L500.4050, L100.0100 #### [facility] [address] [place], [address] T PROT 7.4 g/dL Normal 6.4-8.2 [facility] Comment on above: Performed By: #### L 500.4100, L5500.0550, L500.4050, L100.0100 #### [facility] [address] [place], [address] Urea nitrogen [Mass/Vol] 11 mg/dL Normal 7-18 [facility] Comment on above: Performed By: #### L 500.4100, L5500.0550, L500.4050, L100.0100 #### [facility] [address] [place], [address] Lipid Profileon 11-26-2024 Cholesterol [Mass/Vol] 240 mg/dL High 200 [facility] Comment on above: Result Comment: <200 mg/dL Desirable 200-240 mg/dL Borderline >240 mg/dL High Risk Performed By: #### L 500.4100, L5500.0550, L500.4050, L100.0100 #### [facility] [address] [place], [address] Cholesterol in HDL [Mass/Vol] 59 mg/dL Normal [facility] Comment on above: Result Comment: The drugs N-Acetylcysteine and Metamizole may falsely depress this assay. Reference Range HDL <40 mg/dL Low HDL Cholesterol HDL >or= 60 mg/dL High HDL Cholesterol Performed By: #### L 500.4100, L5500.0550, L500.4050, L100.0100 #### [facility] [address] [place], [address] Cholesterol in LDL [Mass/Vol] 133 mg/dL High 0-130 [facility] Comment on above: Performed By: #### L 500.4100, L5500.0550, L500.4050, L100.0100 #### [facility] [address] [place], [address] Cholesterol in VLDL [Mass/Vol] 48 mg/dL High 5-40 [facility] Comment on above: Performed By: #### L 500.4100, L5500.0550, L500.4050, L100.0100 #### [facility] [address] [place], [address] Triglyceride [Mass/Vol] 239 mg/dL High [facility] Comment on above: Result Comment: The drugs N-Acetylcysteine and Metamizole may falsely depress this assay. Serum Triglycerides Reference Interval Normal <150 mg/dL Borderline high 150 - 199 mg/dL High 200 - 499 mg/dL Very High > or = 500 mg/dL Performed By: #### L 500.4100, L5500.0550, L500.4050, L100.0100 #### [facility] [address] [place], [address] Internal Medicine Office Vis adela 11-11-2024 Internal Medicine Office Visit [facility] [place] [address] [place] [address] OFFICE VISIT Date of Service: 11/12/24 MR#: [id number] Acct: [id number] Name: MILADYS DIETZ Rep #: [id number] : 1990 Provider: Dr. 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 She was seeing a provider in [place], but hasn't been seen in 5-6 years. [...] or vomitin (more content not included)... 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 [id number] Electronically Signed: Benjamin Ye MD at 9:25 EDT , CC: WHIT Parada; No Primary Care Physician Rn Circulating: Signed Normal [facility] XR Injection Hysterosalpingo graphyon 05-18-2021 XR Injection Hysterosalpingography Fluoro Time Indication: Infertility 3.0 minutes of fluoro was provided to Dr. Chicas. Read by: FRANCIS ALBARRAN MD Approved by: FRANCIS ALBARRAN MD Date: 05/18/2021 8:45 AM [facility] Vital Signs Date Time Vital Sign Value Performing Clinician Facility 07-29-2025 09:05-0400 Body height 172.[address] Inga Hong MD Work Phone: [facility] 07-29-2025 09:05-0400 Body mass index (BMI) [Ratio] 26.7 kg/m2 Dr. Inga Hong MD Work Phone: [facility] 07-29-2025 09:05-0400 Body temperature 97.1 [degF] Dr. Inga Hong MD Work Phone: [facility] 07-29-2025 09:05-0400 Body weight 79.[address] Inga Hong MD Work Phone: [facility] 07-29-2025 09:05-0400 Diastolic blood pressure 70 mm[Hg] Dr. Inga Hong MD Work Phone: [facility] 07-29-2025 09:05-0400 Heart rate 90 /min Dr. Inga Hong MD Work Phone: [facility] 07-29-2025 09:05-0400 Respiratory rate 14 /min Dr. Inga Hong MD Work Phone: [facility] 07-29-2025 09:05-0400 SaO2% (BldA) [Mass fraction] 98 % Dr. Inga Hong MD Work Phone: [facility] 07-29-2025 09:05-0400 Systolic blood pressure 122 mm[Hg] Dr. Inga Hong MD Work Phone: [facility] 07-20-2023 10:23-0400 Body height 172.7 cm No Pcp Required [facility] 07-20-2023 10:23-0400 Body temperature 97.88 [degF] No Pcp Required [facility] 07-20-2023 10:23-0400 Diastolic blood pressure 94 mm[Hg] No Pcp Required [facility] 07-20-2023 10:23-0400 Heart rate 88 /min No Pcp Required [facility] 07-20-2023 10:23-0400 Respiratory rate 14 /min No Pcp Required [facility] 07-20-2023 10:23-0400 SaO2% (BldA) [Mass fraction] 98 % No Pcp Required [facility] 07-20-2023 10:23-0400 Systolic blood pressure 134 mm[Hg] No Pcp Required [facility] 06-05-2022 11:48-0400 Body height 172.72 cm No Primary Care Physician [facility] Work Phone: 06-05-2022 11:48-0400 Body mass index (BMI) [Ratio] 24.2 kg/m2 No Primary Care Physician [facility] Work Phone: 06-05-2022 11:48-0400 Body weight 72.34 kg No Primary Care Physician [facility] Work Phone: 06-05-2022 11:48-0400 Diastolic blood pressure 70 mm[Hg] No Primary Care Physician [facility] Work Phone: 06-05-2022 11:48-0400 Systolic blood pressure 118 mm[Hg] No Primary Care Physician [facility] Work Phone: Encounters Encounter Date Encounter Type Care Provider Facility Start: 07-31-2025 End: 07-31-[address] Inga Hong MD Work Phone: -Laboratory Start: 07-31-2025 End: 07-31-[address] Inga Hong MD -Laboratory Work Phone: Start: 07-31-2025 End: 07-31-2025 ambulatory Inga Hong Facility:[facility] Start: 07-29-2025 End: 07-29-[address] Inga Hong MD -[facility] Work Phone: Start: 07-29-2025 End: 07-29-[address] Inga Hong MD Work Phone: -[facility] Start: 07-24-2025 End: 07-24-[address] Inga Hong MD Work Phone: -Laboratory Start: 07-24-2025 End: 07-24-[address] Inga Hong MD -Laboratory Work Phone: Start: 07-24-2025 End: 07-24-2025 ambulatory Inga Hong Facility:[facility] Start: 01-22-2025 Encounter for other preprocedural examination [facility] Start: 01-11-2025 End: 01-11-2025 ambulatory Inga Hong Facility:[facility] Start: 12-07-2024 End: 12-07-2024 ambulatory Inga Hong Facility:[facility] Start: 11-26-2024 End: 11-26-2024 ambulatory Inga Hong Facility:[facility] Start: 11-12-2024 End: 11-12-2024 ambulatory No Primary Care Physician Facility:[facility] Start: 08-31-2024 End: 08-31-2024 ambulatory Gabrielladimitrios Parada JAMES Facility:[facility] Start: 07-20-2023 End: 07-20-2023 Emergency department patient visit Markie Kaur [facility] Start: 06-05-2022 End: 06-05-2022 Patient encounter procedure No Primary Care Physician [facility]-Laboratory, Specimen Start: 06-05-2022 End: 06-05-2022 Patient encounter procedure No Primary Care Physician [facility] Start: 05-18-2021 End: 05-18-[address] [facility] Procedures Date Procedure Procedure Detail Performing Clinician Start: 07-31-2025 Total iron binding capacity measurement Dr. nIga Hong MD Work Phone: Plan of Treatment Date Care Activity Detail Author Start: 06-05-2022 Liquid based cervica l cytology screening [facility] Work Phone: Path report.final Dx Spec [facility] Work Phone: Immunizations Immunization Date Immunization Notes Care Provider Argelia mei 11-12-2024 influenza, injectabl e, madin ricky canine kidney, preservative free Dr. Inga Hong MD Work Phone: [facility] 11-12-2024 Influenza, injectabl e, Madin Ricky Canine Kidney, preservative free, quadrivalent Dr. Inga Hong MD Work Phone: [facility] 10-22-2023 tetanus toxoid, redu gisela diphtheria toxoid, and acellular pertussis vaccine, adsorbed Dr. Inga Hong MD Work Phone: [facility] 02-03-2021 Covid (Pfizer) Dr. Inga roland MD Work Phone: [facility] 01-13-2021 Covid (Pfizer) Dr. Inga roland MD Work Phone: [facility] Payers Date Payer Category Payer Unknown [id number] 2024 Self-pay [id number] 2024 Unknown [id number] 2024 Unknown [id number] 1959 Unknown [id number] Unknown [id number] Unknown [facility] Unknown [id number] Unknown [id number] Unknown [id number] Unknown [id number] Unknown [id number] Unknown [id number] Unknown [id number] Unknown [id number] Unknown [id number] Social History Date Type Detail Facility Start: 06-05-2022 Tobacco smoking stat us RIIS Unknown if ever smoked [facility] Work Phone: Start: 1990 Sex Assigned At Female [facility] Start: 01-11-2025 End: 07-29-2025 Tobacco smoking status NHIS Never smoked tobacco (finding) [facility] Evaluation note 07-29-2025 Note Date & Type Note Facility 07-29-2025 Evaluation note Diagnosis Onset Date Resolution Dysmenorrhea acute July 8:58am Screening for depression noneactive July 29 025 8:58am Seasonal allergies noneactive 2024 8:58am Annual physical exam noneactive Jul ember 2024 8:58am Pre-adoption visit for adoptive parent noneactive July 29 025 8:58am Iron deficiency anemia noneactive Se ptember 2024 8:58am Anal fissure noneactive July 8:58am [facility] Work Phone: Clinical Note 01-11-2025 Note Date & Type Note Facility 01-11-2025 Note [facility] Medical Records Department [address] [place] [address] History Physical Exam 01/11/25 0719 MR#: [id number] Acct: [id number] Name: MILADYS DIETZ Rep #: [id number] : 1990 34 From: Madyson Rdz MD PCP: Dr. Inga Hong MD Status:[facility] Location: [place] [address] HPI - General General Date of Service: 01/11/25 HPI Narrative MILADYS BAEN, is a 34 F who presents for [...] but patient states there is no cancer. 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 [facility] Evaluation note Note Date & Type Note Facility Evaluation note Diagnosis Onset Date Dysmenorrhea acute Infertility acute Encounter for routine gyneco logical examination noneactive [facility] Work Phone: Evaluation note Note Date & Type Note Facility Evaluation note No assessment information availa ble [facility] Work Phone: Evaluation note Note Date & Type Note Facility Evaluation note Diagnosis Onset Date Resolution Dysmenorrhea acute July 8:58am Seasonal allergies noneactive 2024 8:58am Anal fissure noneactive July 8:58am [facility] Work Phone: Reason for referral (narrative) Note Date & Type Note Facility Reason for referral (narrative) No reason for referral information available [facility] Work Phone: Summary Purpose Family History No [...] and Reason for Visit 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) Reason for Visit Dysmenorrhea Infertility Encounter for routine gynecological examination Chief Complaint Admit Date E ORDER July 24, 2025 9: 49am Chief Complaint Admit Date E ORDER July 24, 2025 9: 49am ADOPTION FITNESS APPOINTMENT July 292024 8:58am Reason for Visit Admit Date Dysmenorrhea July 29, 2025 8:58am Seasonal allergies July 29, 2025 8:58am Anal fissure July 29, 2025 8:58am Reason for Visit Admit Date Dysmenorrhea July 29, 2025 8:58am Screening for depression July 29, 2025 8:58am Seasonal allergies July 29, 2025 8:58am Annual physical exam July 29, 2025 8:58am Pre-adoption visit for adoptive parent S eptember 2024 8:58am Iron deficiency anemia July 29 8:58am Anal fissure July 29, 2025 8:58am Additional Source Comments INFORMATION SOURCE (unrecogn ized section and content) DATE CREATED AUTHOR 05/31/2021 [facility] DATE CREATED AUTHOR AUTHOR'S ORGANIZ ATION 08/07/2025 [facility] Goals (unrecognized section and content) Goals [...] July 29, 2025 End: July 29, 2025 Team Status: Inactive Member Role/Relationship Status Dates Dr. Inga Hong MD Primary Care Provider Active Start: July 31, 2025 End: July 31, 2025 Dr. Inga Hong MD Attending Provider Active Start: July 31, 2025 End: July 31, 2025 Dr. Inga Hogn MD Referring Provider Active Start: July 31, 2025 End: July 31, 2025 FOR RECORDS PERTAINING TO PATIENTS WHO [...] BE BASED ON THE PRIMARY CLINICAL RECORDS. [facility] [employer] [facility]. provides no warranty or guarantee of the accuracy or completeness of information in this document.
[2025-11-06 11:57] LABS: Hematocrit 37.6 % (37-47); Hemoglobin 12.2 g/dL (12.0-15.0); Immature Granulocytes Count 0.000 X10^3/uL (0.0-0.0); Mean Corp Hgb Conc 32.4 g/dL (32-36); Mean Corpuscular Volume 81.7 fL (81-99); Mean Platelet Vol. 9.1 fl (6.2-12.0); NRBC Flagged by Analyzer 0 % (0-5); Platelet Count 534 K/mm3 (150-450); RBC Distribution Width CV 14.7 % (11.6-14.6); RBC Distribution Width SD 44.0 fl (35.1-43.9); Red Blood Count 4.60 M/mm3 (4.2-5.4); White Blood Count 6.6 K/mm3 (4.4-11.0)
[2025-11-06 12:26] LABS: Ferritin 22 ng/mL (22-378); Iron 56 ug/dL (50-170); Iron Binding Capacity,Total 386 ug/dL (250-450); Iron Binding Capacity,Unsat 330 ug/dL (228-428)
== END | disposition home or self-care (01) ==
PROVIDERS: PCP Internal Medicine; Referring Provider Internal Medicine; Visit Provider Internal Medicine
DX: E61.1 Iron deficiency (principal)
CPT/HCPCS: 36415; 82728; 83540; 83550; 85025

== ENCOUNTER → 2025-11-16 | Outpatient (CLI) | payer SELFPAY ==
--- NOTE | 2025-11-16 10:15 | BI_ITS ---
EXAM: SCRN MAMM (CAD)W/FABIOLA BILAT DATE: 11/16/2025 CLINICAL HISTORY: F, Age 35 y/o , SCREENING FOR BREAST CANCER TECHNIQUE: Procedure Code: [id number] Modality: MG Procedure: SCRN MAMM (CAD)W/FABIOLA BILAT COMPARISON: Prior exam(s) were compared FINDINGS: TISSUE DENSITY: The breasts are extremely dense, which lowers the sensitivity of mammography. Bilateral Breast Mammographic Findings: No significant masses, calcifications or other abnormalities are identified. BI/SCRN MAMM (CAD)W/FABIOLA BILAT IMPRESSION: No mammographic evidence of malignancy. OVERALL FINAL ASSESSMENT BI-RADS 1: NEGATIVE. RECOMMENDATION: Routine annual follow-up in 1 Year Additional Recommendation none A letter with findings and recommendations will be mailed to the patient. Reading Location: [id number]
== END | disposition home or self-care (01) ==
PROVIDERS: PCP Internal Medicine; Referring Provider Nurse Practitioner Women's Health; Visit Provider Nurse Practitioner Women's Health
DX: Z12.31 Encounter for screening mammogram for malignant neoplasm of breast (principal)
CPT/HCPCS: 77063; 77067